=== PATIENT | female | born 1975 | race Hispanic/Latino ===

== ENCOUNTER 2022-07-12 08:25 | Emergency (ER) | payer SELFPAY ==
--- OUTSIDE RECORDS SUMMARY | 2022-07-12 08:29 | XMS REPORT | Continuity of Care Document ---
:1975 Author Organization [facility] t Address [address] [place] [address] Care Team Providers Name Role Phone PCP, PATIENT DOES NOT HAVE A Primary Care Physician Gricelda Villareal MD Attending Clinician GRICELDA ORANTES Attending Clinician Unavailable MATT KEARNEY Attending Clinician Unavailable Payers Payer Name Policy Type Policy Number Effective Date Expiration Date S [facility] MEDICAID ALIEN PENDING 2021 PENDING 00:00:00 Problems This patient has no known problems. Allergies, Adverse Reactions, Alerts Allergy Allergy Status Severity Reaction(s) Onset Inactive Treating Comm ents Source Name Type Date Date Clinician TETANUS DRUG Active Other-Cmnt Unive rs AND INGREDI 9-26 ity of DIPHTHER 00:00: [place] 00 Medical TOXOIDS, Branch ADSORBED , ADULT NO KNOWN Drug Active Univers ALLERGIE Class ity of S [facility] Social History Social Habit Start Date Stop Date Quantity Comments Source Exposure to 2021-11-12 2021-12-12 Not sure [facility] SARS-CoV-2 (event) 00:00:00 19:59:00 Medica l Branch Sex Assigned At [birth year] [facility] 00:00:00 00:00:00 Medical Branch Smoking Status Start Date Stop Date Source Unknown if ever smoked [facility] Medications Ordered Filled Start Stop Current Ordering Indication Dosage Frequency Signature Comments Components Source Medication Medication Date Date Medication? Clinician (SIG) Name Name ketorolac 30mg 30 mg, Unive rs (TORADOL) 12-13 Slow IV ity of injection 03:45: 03:21 Push, [place] 30 mg 00 :00 ONCE, 1 Medical dose, On Branch Sat12/12/21 at 2245, Routine
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 Vital Signs Vital Name Observation Time Observation Value Comments Source Systolic blood 2021-12-13 04:00:00 140 mm[Hg] [facility] Diastolic blood 2021-12-13 04:00:00 99 mm[Hg] [facility] Heart rate 2021-12-13 04:00:00 74 /min [facility] Respiratory rate 2021-12-13 04:00:00 16 /min [facility] Oxygen saturation in 2021-12-13 04:00:00 94 /min [facility] Arterial blood by [facility] Pulse oximetry [place] Body temperature 2021-12-13 01:02:00 36.61 [facility] Body height 2021-12-13 01:02:00 152.4 cm [facility] Body weight 2021-12-13 01:02:00 74.39 kg [facility] BMI 2021-12-13 01:02:00 32.03 kg/m2 [facility] Procedures Procedure Date / Time Performed Performing Clinician Sourc e COMP. METABOLIC PANEL 2021-12-13 03:22:00 Gricelda Orantes [facility] ([id number]) [facility] CBC WITH DIFF 2021-12-13 03:22:00 Gricelda Orantes [facility] POCT TEST 2021-12-13 02:52:00 Gricelda Orantes [facility] URINALYSIS 2021-12-13 01:09:00 Gricelda Orantes [facility] NOTICE OF PRIVACY 2021-12-13 00:59:25 Doctor Unassigned, No Univ [facility] Name [facility] CONSENT/REFUSAL FOR 2021-12-13 00:53:45 [facility] TREATMENT Encounters Start End Encounter Admission Attending Care Care Encounter Source Date/Time Date/Time Type Type Clinicians Facility Department ID 2021-12-12 2021-12-12 Emergency [facility] [id number] Univers 20:52:00 23:09:00 Gricelda Hernandez [place] [id number] [facility] [id number] [facility] [id number] [facility] 084 Branch 2021-12-12 2021-12-12 Emergency X COUNT INCLUDES THE [facility] ERT [id number] Univers 20:52:00 23:09:00 [facility] 2021-12-12 2021-12-12 Emergency X COUNT INCLUDES THE [facility] ERT [id number] Univers 20:52:00 23:09:00 [facility] 2016-07-10 2016-07-10 Outpatient [facility] [id number] Univers 11:27:07 23:59:00 ERICCA [facility] Results Test Description Test Time Test Comments Results Result Comments Source COMP. METABOLIC PANEL (74106) 2021-12-13 03:44:02 Test Item Value Reference Range Interpretation Comme nts NA (test code = 4461044689) 140 mmol/L 135-145 K (test code = 9462641359) 4.0 mmol/L 3.5-5.0 CL (test code = 8775792316) 101 mmol/L 98-108 CO2 TOTAL (test code = 6358474372) 27 mmol/L 23-31 AGAP (test code = 4442045848) 2-16 BUN (test code = 1244984596) 10 mg/dL 7-23 GLUCOSE (test code = 5766666651) 88 mg/dL 70-110 CREATININE (test code = 0.50 mg/dL 0.50-1.04 0866438212) TOTAL BILI (test code = 0.6 mg/dL 0.1-1.9 6841055128) CALCIUM (test code = 2985819957) 8.5 mg/dL 8.6-10.6 L T PROTEIN (test code = 3795199130) 7.5 g/dL 6.3-8.2 ALBUMIN (test code = 2808162737) 4.5 g/dL 3.5-5.0 ALK PHOS (test code = 6252491874) 60 U/L 34-122 ALTv (test code = 1742-6) 23 U/L 5-35 AST(SGOT) (test code = 7482229660) 26 U/L 13-40 eGFR (test code = 9526427770) mL/min/1.73m2 BOBBY (test code = BOBBY) Association of Glomerular Filtration Rate (GFR) and Staging of Kidney Disease* + +-------- + ------+| GFR (mL/min/1.73 m2) ?| With Kidney Damage ?| ?Without Kidney Damage+ +-- + +| ?>90 ?| ?Stage one ?| ? Normal ?+ +------- + -------+| ?60-89 ?| ?Stage two ?| ? Decreased GFR ? + +-------- + ------+| ?30-59 ?| ?Stage three ?| ? Stage three ? + +-------- + ------+| ?15-29 ?| ?Stage four ? | ? Stage four ?+ +------- + -------+| ?<15 (or dialysis) ? ?| ?Stage five ? | ? Stage five ?+ +------- + -------+ *Each stage assumes the associated GFR level has been in effect for at least three months. ?Stages 1 to 5, with or without kidney disease, indicate chronic kidney disease. Notes: Determination of stages one and two (with eGFR >59mL/min/1.73 m2) requires estimation of kidney damage for at least three months as defined by structural or functional abnormalities of the kidney, manifested by either:Pathological abnormalities or Markers of kidney damage (including abnormalities in the composition of the blood or urine or abnormalities in imaging tests). Lab Interpretation (test code = Abnormal 15907-5) [facility] WITH [id number] 03:30:42 Test Item Value Reference Range Interpretation Comments WBC (test code = See_Comment [Automated message] 6690-2) The system [employer] generated this result transmitted ref erence range: 4.30 - 1 1.10 10*3/?L. The re ference range was not u sed to interpret this result as normal/abnor mal. RBC (test code = See_Comment [Automated message] 339-8) The system [employer] generated this result transmitted ref erence range: 3.93 - 5 .25 10*6/?L. The re ference range was not u sed to interpret this result as normal/abnor mal. HGB (test code = 14.3 g/dL 11.6-15.0 718-7) HCT (test code = 42.8 % 35.7-45.2 4544-3) MCV (test code = 87.5 fL 80.6-95.5 787-2) MCH (test code = 29.2 pg 25.9-32.8 785-6) MCHC (test code = 33.4 g/dL 31.6-35.1 786-4) RDW-SD (test code 42.4 fL 39.0-49.9 = 48689-0) RDW-CV (test code 13.3 % 12.0-15.5 = 788-0) PLT (test code = See_Comment [Automated message] 607-3) The system [employer] generated this result transmitted ref erence range: 166 - 35 8 10*3/?L. The re ference range was not u sed to interpret this result as normal/abnor mal. MPV (test code = 10.7 fL 9.5-12.9 53006-5) NRBC/100 WBC (test See_Comment [Automat ed message] code = 9003894564) The syste [employer] which generated this result transmitted ref erence range: 0.0 - 10 .0 /100 WBCs. The refer ence range was not u sed to interpret this result as normal/abnor mal. NRBC x10^3 (test <0.01 See_Comment [Automated message] code = 8102434781) The syste m which generated this result transmitted ref erence range: 10*3/?L. The reference range was not used to interpr et this result as normal/abnormal . GRAN MAT (NEUT) % 52.4 % (test code = 770-8) IMM GRAN % (test 0.20 % code = 6726254934) LYMPH % (test code 36.1 % = 736-9) MONO % (test code 8.6 % = 5905-5) EOS % (test code = 2.3 % 713-8) BASO % (test code 0.4 % = 706-2) GRAN MAT 2.56 10*3/uL 1.88-7.09 x10^3(ANC) (test code = 9409973774) IMM GRAN x10^3 <0.03 0.00-0.06 (test code = 2109730029) LYMPH x10^3 (test 1.76 10*3/uL 1.32-3.29 code = 731-0) MONO x10^3 (test 0.42 10*3/uL 0.33-0.92 code = 742-7) EOS x10^3 (test 0.11 10*3/uL 0.03-0.39 code = 711-2) BASO x10^3 (test <0.03 0.01-0.07 code = 704-7) [id number]:52[facility]00 Test Item Value Reference Range Interpretation Comments POCT PREG (test code = 1605) negative On board controls acceptable with present C Line (test code = 3574) POCT PREG LOT # (test code = 3575) [id number] POCT PREG TEST DATE (test 05/25/2023 code = 3576) Lab Interpretation (test code = Normal 41345-8) [facility]"
[2022-07-12] MEDS ORDERED: MORPHINE 4 MG/ML SYR ONE (09:27)
[2022-07-12] MEDS ORDERED: ONDANSETRON 4 MG/2 ML VIAL ONE (09:27)
[2022-07-12] MEDS ORDERED: FAMOTIDINE 20 MG/2 ML VIAL IV ONE (09:27)
[2022-07-12] MEDS ORDERED: NA CHLORIDE 0.9% 1,000 ML ONE (09:27)
[2022-07-12 09:54] LABS: Absolute Lymphocytes (CBC) 1.5 K/uL (0.7-4.9); Hematocrit 45.3 % (36.0-45.0); Lymphocytes % 21.5 % (15.3-44.8); MCV 87.8 fL (80-100); MPV 8.6 fL (7.6-11.3); RBC Red Blood Cell Count 5.16 M/uL (3.86-4.86)
[2022-07-12 10:01] LABS: Albumin 4.1 g/dL (3.4-5.0); Bilirubin Total 0.7 mg/dL (0.2-1.0); Potassium 3.5 mmol/L (3.5-5.1); Protein, Total 8.6 g/dL (6.4-8.2)
--- NOTE | 2022-07-12 10:43 | RAD REPORT ---
EXAM DESCRIPTION: CTAbdomen Pelvis W Contrast - 07/12/2022 10:24 am CLINICAL HISTORY: Abdominal pain. Abdominal pain, acute, nonlocalized COMPARISON: No comparisons TECHNIQUE: Biphasic CT imaging of the abdomen and pelvis was performed with 100 ml non-ionic IV cont rast. All CT scans are performed using dose optimization technique as appropriate and may include automated exposure control or mA/KV adjustment according to patient size. FINDINGS: The lung bases are clear.Small hiatal hernia. The liver, spleen, pancreas, adrenal glands and kidneys are within normal limits. No bowel obstruction, free air, free fluid or abscess. The appendix is normal. No evidence of signi ficant lymphadenopathy. The uterus is very enlarged measuring 16 x 10 cm and containing multiple masses likely leiomyomatous uterus. There is a large lesion in the right lower quadrant measuring 9.4 x 7.6 cm, this is likely ri ght ovarian in origin. No suspicious bony findings. IMPRESSION: Large cystic lesion present in the right lower quadrant measuring 9.4 x 7.6 cm. This cou ld represent a large ovarian cyst, ovarian cystadenoma or less likely ovarian cystadenocarcinoma. Pel itzel ultrasound could be obtained for further evaluation. Significant leiomyomatous uterus.
--- NOTE | 2022-07-12 10:52 | RAD REPORT ---
EXAM DESCRIPTION: RAD - Chest Single View - 07/12/2022 10:47 am CLINICAL HISTORY: CHEST PAIN Chest pain. COMPARISON: No comparisons FINDINGS: Portable technique limits examination quality. The lungs are grossly clear. The heart is normal in size. No displaced fractures. IMPRESSION: No acute intrathoracic process suspected.
--- NOTE | 2022-07-12 11:24 | RAD REPORT ---
EXAM DESCRIPTION: US - Pelvis Complete - 07/12/2022 11:14 am CLINICAL HISTORY: cyst,cpx Pelvic pain. COMPARISON: No comparisons FINDINGS: There is significant enlargement of the uterus present with multiple fibroids present thro ughout the uterine body. The largest in the fundal region noted measuring up to 9 centimeters in size . Endometrium is poorly characterized and distorted by the fibroids. Right ovary measures 3.7 x 1.7 cm. Left ovary measures 4.0 x 2.4 cm. Cystic lesion in the right adnex a measuring 7.7 x 9.1 cm noted probably ovarian or parovarian cyst. IMPRESSION: 9 cm right lower quadrant cystic lesion probably ovarian or parovarian cyst.The lesion h as generally simple cystic characteristics. However, for further evaluation, recommend nonemergent MR I female pelvis protocol. Extensive leiomyomatous uterus.
--- NOTE | 2022-07-12 12:06 | ER ---
Nurse's Notes [facility] Name: Jeannine Alvarenga Age: 46 yrs Sex: Female : 1975 Arrival Date: 07/12/2022 Time: 08:27 Bed 6 Private MD: Diagnosis: Leiomyoma of uterus, unspecified;Other and unspecified ovarian cysts-9.4cm x 7.6cm , right, cystic;Vomiting;Diarrhea, unspecified;Abdominal tenderness Presentation: 07/12 08:36 Chief complaint: Patient states: Dizziness, upper abd pain, N/V/D that began last ss night. Coronavirus screen: Client denies travel out of the [place] in the last 14 days. Ebola Screen: Patient denies exposure to infectious person. Patient denies travel to an Ebola-affected area in the 21 days before illness onset. Initial Sepsis Screen: Does the patient meet any 2 criteria? No. Patient's initial sepsis screen is negative. Does the patient have a suspected source of infection? No. Patient's initial sepsis screen is negative. Risk Assessment: Do you want to hurt yourself or someone else? Patient reports no desire to harm self or others. Onset of symptoms was July 11, 2022. 08:36 Method Of Arrival: Ambulatory ss 08:36 Acuity: ADDIS 3 ss Historical: - Allergies: 08:37 No Known Allergies; ss - Home Meds: 08:37 None [Active]; ss - PMHx: 08:31 Ovarian cyst; ss 08:37 Hypertensive disorder; ss - PSHx: 08:37 None; ss - Immunization history:: Client reports receiving the 2nd dose of the Covid vaccine. - Social history:: Smoking status: Patient denies any tobacco usage or history of. Screenin:44 Abuse screen: Denies threats or abuse. Nutritional screening: No deficits noted. vg1 Tuberculosis screening: No symptoms or risk factors identified. Fall Risk No fall in past 12 months (0 pts). No secondary diagnosis (0 pts). IV access (20 points). Ambulatory Aid- None/Bed Rest/Nurse Assist (0 pts). Gait- Normal/Bed Rest/Wheelchair (0 pts) Mental Status- Oriented to own ability (0 pts). Total Waters Fall Scale indicates No Risk (0-24 pts). Assessment: 09:25 General: Appears in no apparent distress. uncomfortable, Behavior is calm, cooperative. vg1 Pain: Complains of pain in abdomen Pain currently is 8 out of 10 on a pain scale. Pain began this morning around 0100. Neuro: Level of Consciousness is awake, alert, obeys commands, Oriented to person, place, time, situation. Cardiovascular: Patient's skin is warm and dry. Respiratory: Airway is patent Respiratory effort is even, unlabored. GI: Abdomen is flat, Bowel sounds present X 4 quads. Abdomen is tender to palpation in right lower quadrant and left lower quadrant Reports diarrhea, nausea, vomiting. : Reports currently on menstrual cycle states pressure lower ABD and "not bleeding as a normal period, I only see blood when I wipe". EENT: No signs and/or symptoms were reported regarding the EENT system. Derm: Skin is pink, warm \\T\\ dry. Musculoskeletal: Circulation, motion, and sensation intact. 10:17 Reassessment: transported to CT via wheelchair. vg1 10:50 Reassessment: Patient appears in no apparent distress at this time. No changes from vg1 previously documented assessment. Patient and/or family updated on plan of care and expected duration. Pain level reassessed. Patient is alert, oriented x 3, equal unlabored respirations, skin warm/dry/pink. Vital Signs: 08:36 BP 174 / 91; Pulse 70; Resp 16; Temp 97.9(TE); Pulse Ox 99% on R/A; Weight 70.31 kg; ss Pain 5/10; 09:30 BP 159 / 99; Pulse 70; Resp 15; Pulse Ox 98% on R/A; vg1 10:30 BP 159 / 92; Pulse 66; Resp 15; Pulse Ox 99% on R/A; vg1 12:30 BP 152 / 89; Pulse 65; Resp 14; Pulse Ox 98% on R/A; vg1 ED Course: 08:27 Patient arrived in ED. am2 08:29 Ciro Isaac MD is Attending Physician. tiffany 08:36 Loida Calderon, RN is Primary Nurse. vg1 08:37 Triage completed. ss 08:37 Arm band placed on left wrist. ss 09:33 Initial lab(s) drawn, by me, sent to lab. Inserted saline lock: 20 gauge in right vg1 antecubital area, using aseptic technique. Blood collected. 09:44 Patient has correct armband on for positive identification. Placed in gown. Bed in low vg1 position. Call light in reach. Side rails up X 1. Adult w/ patient. 10:26 CT Abd/Pelvis - IV Contrast Only In Process Unspecified. EDMS 10:49 Chest Single View XRAY In Process Unspecified. EDMS 11:16 Pelvis Complete In Process Unspecified. EDMS 12:04 Pamela Gay MD is Referral Physician. [facility] 12:40 No provider procedures requiring assistance completed. IV discontinued, intact, vg1 bleeding controlled, No redness/swelling at site. Pressure dressing applied. Administered Medications: 09:33 Drug: NS 0.9% 1000 ml Route: IV; Rate: 1 bolus; Site: right antecubital; vg1 12:40 Follow up: IV Status: Completed infusion; IV Intake: 1000ml vg1 09:34 Drug: Zofran (Ondansetron) 4 mg Route: IVP; Site: right antecubital; vg1 10:51 Follow up: Response: No adverse reaction; No change in condition vg1 09:36 Drug: Pepcid (famotidine) 20 mg Route: IVP; Site: right antecubital; vg1 10:51 Follow up: Response: No adverse reaction; No change in condition vg1 09:38 Drug: morphine 4 mg Route: IVP; Infused Over: 4 mins; Site: right antecubital; vg1 10:51 Follow up: Response: No adverse reaction; No change in condition vg1 12:36 Drug: Ketorolac 30 mg Route: IVP; Site: right antecubital; vg1 12:39 Follow up: Response: Medication administered at discharge. vg1 Medication: 12:40 VIS not applicable for this client. vg1 Intake: 12:40 IV: 1000ml; Total: 1000ml. vg1 Outcome: 12:05 Discharge ordered by . tiffany 12:40 Discharged to home ambulatory, with family. vg1 12:40 Condition: good 12:40 Discharge instructions given to patient, family, Instructed on discharge instructions, follow up and referral plans. medication usage, Demonstrated understanding of instructions, follow-up care, medications, Prescriptions given X 2. 12:43 Patient left the ED. vg1 Signatures: Dispatcher [employer] EDCiro Yeboah MD MD cha Smirch, Karol, RN RN ss Sana Herzog am2 Loida Calderon RN RN vg1 Corrections: (The following items were deleted from the chart) :12 09:25 : No signs and/or symptoms were reported regarding the genitourinary system. vg1vg1
--- NOTE | 2022-07-12 12:06 | EDPHYS ---
Physician Documentation [facility] Name: Jeannine Alvarenga Age: 46 yrs Sex: Female : 1975 Arrival Date: 07/12/2022 Time: 08:27 Bed 6 Private MD: PEARL Physician Ciro Isaac HPI: 07/12 10:03 This 46 yrs old Female presents to ER via Ambulatory with complaints of tiffany Abdominal Pain, Vomiting/Diarrhea. 10:03 The patient presents to the emergency department with nausea, vomiting, diarrhea, tiffany abdominal pain. Onset: The symptoms/episode began/occurred yesterday. Possible causes: unknown. The symptoms are aggravated by nothing. The symptoms are alleviated by nothing. Associated signs and symptoms: Pertinent positives: diarrhea, nausea, vomiting. Severity of symptoms: At their worst the symptoms were moderate in the emergency department the symptoms are unchanged. The patient has not experienced similar symptoms in the past. Historical: - Allergies: 08:37 No Known Allergies; ss - Home Meds: 08:37 None [Active]; ss - PMHx: 08:31 Ovarian cyst; ss 08:37 Hypertensive disorder; ss - PSHx: 08:37 None; ss - Immunization history:: Client reports receiving the 2nd dose of the Covid vaccine. - Social history:: Smoking status: Patient denies any tobacco usage or history of. ROS: 10:04 Constitutional: Negative for fever, chills, and weight loss, Eyes: Negative for injury, tiffany pain, redness, and discharge, ENT: Negative for injury, pain, and discharge, Neck: Negative for injury, pain, and swelling, Respiratory: Negative for shortness of breath, cough, wheezing, and pleuritic chest pain, Back: Negative for injury and pain, : Negative for injury, bleeding, discharge, and swelling, MS/Extremity: Negative for injury and deformity, Skin: Negative for injury, rash, and discoloration, Neuro: Negative for headache, weakness, numbness, tingling, and seizure, Psych: Negative for depression, anxiety, suicide ideation, homicidal ideation, and hallucinations, Allergy/Immunology: Negative for hives, rash, and allergies, Endocrine: Negative for neck swelling, polydipsia, polyuria, polyphagia, and marked weight changes, Hematologic/Lymphatic: Negative for swollen nodes, abnormal bleeding, and unusual bruising. 10:04 Cardiovascular: Positive for chest pain, of the chest. 10:04 Abdomen/GI: Positive for abdominal pain, nausea, vomiting, diarrhea, of the left lower quadrant. Exam: 10:04 Constitutional: This is a well developed, well nourished patient who is awake, alert, tiffany and in no acute distress. Head/Face: Normocephalic, atraumatic. Eyes: Pupils equal round and reactive to light, extra-ocular motions intact. Lids and lashes normal. Conjunctiva and sclera are non-icteric and not injected. Cornea within normal limits. Periorbital areas with no swelling, redness, or edema. ENT: Nares patent. No nasal discharge, no septal abnormalities noted. Tympanic membranes are normal and external auditory canals are clear. Oropharynx with no redness, swelling, or masses, exudates, or evidence of obstruction, uvula midline. Mucous membranes moist. Neck: Trachea midline, no thyromegaly or masses palpated, and no cervical lymphadenopathy. Supple, full range of motion without nuchal rigidity, or vertebral point tenderness. No Meningismus. Chest/axilla: Normal chest wall appearance and motion. Nontender with no deformity. No lesions are appreciated. Cardiovascular: Regular rate and rhythm with a normal S1 and S2. No gallops, murmurs, or rubs. Normal PMI, no JVD. No pulse deficits. Respiratory: Lungs have equal breath sounds bilaterally, clear to auscultation and percussion. No rales, rhonchi or wheezes noted. No increased work of breathing, no retractions or nasal flaring. Back: No spinal tenderness. No costovertebral tenderness. Full range of motion. Pelvic Exam: Normal external genitalia. Speculum exam with closed cervical os, no discharge or bleeding noted. Bimanual exam with normal adnexa, no adnexal or cervical motion tenderness. Normal uterus. Female : Normal external genitalia. Skin: Warm, dry with normal turgor. Normal color with no rashes, no lesions, and no evidence of cellulitis. MS/ Extremity: Pulses equal, no cyanosis. Neurovascular intact. Full, normal range of motion. Neuro: Awake and alert, GCS 15, oriented to person, place, time, and situation. Cranial nerves II-XII grossly intact. Motor strength 5/5 in all extremities. Sensory grossly intact. Cerebellar exam normal. Normal gait. Psych: Awake, alert, with orientation to person, place and time. Behavior, mood, and affect are within normal limits. 10:04 Abdomen/GI: Inspection: abdomen appears normal, Bowel sounds: normal, Palpation: mild abdominal tenderness, in the left lower quadrant, Liver: no appreciated palpable abnormalities, Hernia: not appreciated. 10:20 ECG was reviewed by the Attending Physician. [facility] Vital Signs: 08:36 BP 174 / 91; Pulse 70; Resp 16; Temp 97.9(TE); Pulse Ox 99% on R/A; Weight 70.31 kg; ss Pain 5/10; 09:30 BP 159 / 99; Pulse 70; Resp 15; Pulse Ox 98% on R/A; vg1 10:30 BP 159 / 92; Pulse 66; Resp 15; Pulse Ox 99% on R/A; vg1 12:30 BP 152 / 89; Pulse 65; Resp 14; Pulse Ox 98% on R/A; vg1 MDM: 08:29 Patient medically screened. tiffany 10:05 Differential diagnosis: abnormal EKG, acute myocardial infarction, acute pericarditis, tiffany cholecystitis, Cholelithiasis costochondritis, Nonspecific abd pain, gastritis, pancreatitis, diverticulitis, viral gastroenteritis, gastroenteritis, gastritis. HEART Score:. The patient's deep vein thrombosis risk score was calculated as follows: Total Score: 0. This patient was found to be at low risk for a deep vein thrombosis by using the Well's assessment criteria. The patient's pulmonary embolism risk score was calculated as follows: Total Score: 0-2 points. This patient was found to be at low risk for a pulmonary embolism by using the Well's assessment criteria. CARMEL Risk Score: TOTAL SCORE = 0. Data reviewed: vital signs, nurses notes, lab test result(s), EKG, radiologic studies, CT scan, plain films. Data interpreted: personnel monitor: rate is 70 beats/min, rhythm is regular, Pulse oximetry: on room air is 98 %. Test interpretation: by ED physician or midlevel provider: ECG, plain radiologic studies. 07/12 08:29 Order name: CBC with Diff; Complete Time: 10: [facility] 07/12 08:29 Order name: CMP; Complete Time: : [facility] 07/12 08:29 Order name: Lipase; Complete Time: 10: [facility] 07/12 10:02 Order name: Troponin High Sensitivity; Complete Time: 10:47 [facility] 07/12 12:17 Order name: Urine Dipstick-Ancillary [facility] 07/12 08:29 Order name: CT Abd/Pelvis - IV Contrast Only; Complete Time: 10:47 [facility] 07/12 10:03 Order name: Chest Single View XRAY; Complete Time: 11:06 [facility] 07/12 11:16 Order name: Pelvis Complete; Complete Time: 12:05 [facility] 07/12 12:19 Order name: Urine --Ancillary (enter results) 07/12 08:29 Order name: IV Saline Lock; Complete Time: 09:41 [facility] 07/12 08:29 Order name: Labs collected and sent; Complete Time: 09:41 [facility] 07/12 08:29 Order name: Urine Dipstick-Ancillary (obtain specimen); Complete Time: 12:18 [facility] 07/12 08:29 Order name: Urine Test (obtain specimen); Complete Time: 12:18 [facility] 07/12 10:02 Order name: EKG; Complete Time: 10:03 [facility] 07/12 10:02 Order name: EKG - Nurse/Tech; Complete Time: 10:16 [facility] EC:20 Rate is 65 beats/min. Rhythm is regular. QRS [place] is Normal. [place] interval is normal. QRS tiffany interval is normal. QT interval is normal. No Q waves. T waves are Normal. No ST changes noted. Clinical impression: Normal ECG and No evidence of ischemia. Interpreted by me. Reviewed by me. Administered Medications: 09:33 Drug: NS 0.9% 1000 ml Route: IV; Rate: 1 bolus; Site: right antecubital; vg1 12:40 Follow up: IV Status: Completed infusion; IV Intake: 1000ml vg1 09:34 Drug: Zofran (Ondansetron) 4 mg Route: IVP; Site: right antecubital; vg1 10:51 Follow up: Response: No adverse reaction; No change in condition vg1 09:36 Drug: Pepcid (famotidine) 20 mg Route: IVP; Site: right antecubital; vg1 10:51 Follow up: Response: No adverse reaction; No change in condition vg1 09:38 Drug: morphine 4 mg Route: IVP; Infused Over: 4 mins; Site: right antecubital; vg1 10:51 Follow up: Response: No adverse reaction; No change in condition vg1 12:36 Drug: Ketorolac 30 mg Route: IVP; Site: right antecubital; vg1 12:39 Follow up: Response: Medication administered at discharge. vg1 Disposition Summary: 07/12/22 12:05 Discharge Ordered Location: Home tiffany Problem: new tiffany Symptoms: have improved tiffany Condition: Stable tiffany Diagnosis - Leiomyoma of uterus, unspecified tiffany - Other and unspecified ovarian cysts - 9.4cm x 7.6cm , right, cystic tiffany - Vomiting tiffany - Diarrhea, unspecified tiffany - Abdominal tenderness tiffany Followup: tiffany - With: Private Physician - When: 2 - 3 days - Reason: Recheck today's complaints, Continuance of care, Re-evaluation by your physician Followup: tiffany - With: - When: 2 - 3 days - Reason: Recheck today's complaints, Continuance of care, Re-evaluation by your physician Discharge Instructions: - Discharge Summary Sheet tiffany - Abdominal Pain, Adult tiffany - Diarrhea, Adult tiffany - Uterine Fibroids tiffany - Ovarian Cyst tiffany - Abdominal Pain, Adult, [id number] tiffany - Ovarian Cyst, [id number] tiffany - Diarrhea, Adult, [id number] tiffany - Vomiting, Adult tiffany Forms: - Medication Reconciliation Form tiffany - Thank You Letter tiffany - Antibiotic Education tiffany - Prescription Opioid Use tiffany - Work release form vg1 Prescriptions: - Zofran 4 mg Oral Tablet - take 1 tablet by ORAL route every 12 hours As needed; 20 tablet; Refills: 0, tiffany Product Selection Permitted - Diclofenac Sodium 75 mg Oral tablet,delayed release (DR/EC) - take 1 tablet by ORAL route 2 times per day; 20 tablet; Refills: 0, Product tiffany Selection Permitted Signatures: Dispatcher [employer] EDCiro Yeboah MD MD cha Smirch, Shelby RN RN Loida Anna RN RN vg1 Corrections: (The following items were deleted from the chart) 11:16 10:50 Transvaginal Study (Probe)+[email or web address] ordered. EDMS EDMS
[2022-07-12 12:17] LABS: Urine Blood Negative (Negative); Urine Glucose Negative (Negative); Urine Protein Negative (Negative); Urine Specific Gravity 1.015 (1.005-1.030)
[2022-07-12] MEDS ORDERED: KETOROLAC 30 MG/ML INJ ONE (12:22)
[2022-07-12 12:43] LABS: Urine Specific Gravity/Preg 1.015 (1.005-1.030)
[2022-07-12 12:48] VITALS: TEMP 97.9
[2022-07-12 12:51] VITALS: BP 152/89; O2SAT 98
--- NOTE | 2022-07-14 19:19 | EKG ---
Test Date: 2022-07-12 Test Time: 10:14:00 [employer] Kitchen: MEASUREMENT RESULTS: Intervals: Rate: 65 TX: 160 QRSD: 92 QT: 426 QTc: 443 [place]: P: 62 TX: 160 QRS: 65 T: 48 INTERPRETIVE STATEMENTS: Normal sinus rhythm Normal ECG No previous ECG available for comparison Electronically Signed On 07-14-22 19:11:08 RN DISEASE MANAGEMENT by Cory Luo
== END 2022-07-12 12:43 | disposition home or self-care (01) ==
LOC: ER 08:25
DX: N83.299 Other ovarian cyst, unspecified side (principal); D25.9 Leiomyoma of uterus, unspecified; R19.7 Diarrhea, unspecified; R11.10 Vomiting, unspecified
CPT/HCPCS: 36415; 71045; 74177; 76856; 80053; 81003; 81025; 83690; 84484; 85025; 93005; 96361; 96374; 96375; 99284; J2405; J7030; Q9967

== ENCOUNTER 2025-05-19 10:11 | Emergency (ER) | payer OTHER ==
--- OUTSIDE RECORDS SUMMARY | 2025-05-19 10:17 | XMS REPORT | Continuity of Care Document ---
Author Name Unknown Address [address] [facility] [address] [place] [address] [facility] Address [address] [facility] [address] [facility] [address] [place] [address] Care Team Providers Care Deputy Chief Sheriff Name Role Phone Pcp, Patient Does Not Have A Primary Care Physic sonal NT90 Attending Clinician Unavailable PREZAS, RAMILA Attending Clinician Unavailable DOM RICKS Attending Clinician Unavailable MD SOURAV Attending Clinician Unavailab HANNAH Schmid Attending Clinician Unavailable TERRENCE PAYNE Attending Clinician Unava ilable LAB47 Attending Clinician Unavailable LAB90 Attending Clinician Unavailable LUIS LOYOLA Attending Clinician Unavailable PAMELA LUIS Attending Clinician Unavailable CHAYITO PERALTA Attending Clinician Rashida SUHA Eddy Attending Clinician Unava ilable LEIDA MARTINEZ Attending Clinician Unavailable Hannah Hannon Attending Clinician Unavailable Farhana Gore Attending Clinician UnavailShorty Interiano Attending Clinician [phone] IRIS DUNCAN Attending Clinician Unavailable Iris Duncan MD Attending Clinician [phone] SHORTY MAJOR Attending Clinician Unavailable Hannah Hannon Admitting Clinician Unavailable Physician, No Primary or Family Admitting Clinic sonal Unavailable Payers Payer Name Policy Type Policy Number Effective Date Expirati on Date Source [address] [employer] 87 [id number] 2024 00:00:00 MEDICAID [place] PENDING PENDING 2021 00:00:00 Problems Condition Name Condition Details Condition Category Status Onset Date Resolution Date Last Treatment Date Treating Clinician Comments Source Primary hypertensi on Primary hypertensi on Disease Active 10-26 00:00: 00 Yanni Seybold - Externa l Ganglion cyst of wrist, left Ganglion cyst of wrist, left Disease Active 2015-08 00:00: 00 [facility] Abdominal or pelvic swelling, mass or lump, unspecifie d site Abdominal or pelvic swelling, mass or lump, unspecifie d site Disease Active 2015-08 00:00: 00 [facility] Need for prophylact ic vaccinatio n with combined diphtheria -tetanus-p ertussis (DTP) vaccine Need for prophylact ic vaccinatio n with combined diphtheria -tetanus-p ertussis (DTP) vaccine Disease Active 2014-08 0-12 00:00: 00 [facility] H/O tubal ligation H/O tubal ligation Disease Active 3-05 00:00: 00 [facility] Intramural leiomyoma of uterus Intramural leiomyoma of uterus Disease Active 10-13 00:00: 00 Overview: Formattin g of this note might be different from the original. Confirmed by ade knox Please see radiology report [facility] Other and unspecifie d ovarian cyst Other and unspecifie d ovarian cyst Disease Active 10-13 00:00: 00 [facility] Essential hypertensi on, benign Essential hypertensi on, benign Disease Active 05-21 00:00: 00 [facility] Obesity Obesity Disease Active 05-21 00:00: 00 Overview: Formattin g of this note might be different from the original. ICD10 Diagnosis Term [employer] [facility] Allergies, Adverse Reactions, Alerts Allergy Name Allergy Type Status Severity Reaction(s) Onset Date Inactive Date Treating Clinician Comments Source No Known Allergie s DA Active U 10-05 00:00: 00 [facility] No Known Allergie s DA Active U 2021-0815 00:00: [facility] Tetanus Toxoid Propensi ty to adverse reaction s Active Other 05-21 00:00: 00 Yanni Acevedo - Externa l Tetanus And Diphther ia Toxoids, Adsorbed , Adult Propensi ty to adverse reaction s Active Other - See comments 05-21 00:00: 00 [facility] TETANUS AND DIPHTHER IA TOXOIDS, ADSORBED , ADULT DRUG INGREDI Active Other-Cmnt 05-21 00:00: 00 [facility] NO KNOWN ALLERGIE S Drug Class Active [facility] Social History Social Habit Start Date Stop Date Quantity Comments Source ASSERTION Not Yanni Acevedo - External Gender identity Poornima Acevedo - External Sexual orientation Jamia Acevedo - External Alcoholic beverage intake 2024-06-25 00:00:00 2024-06-25 00:00:00 Ex-drinker (finding) Yanni Acevedo - External Tobacco use and exposure 2023-10-31 00:00:00 2023-10-31 00:00:00 Smokeless tobacco non-user Yanni Acevedo - External Alcohol intake 2023-10-31 00:00:00 2023-10-31 00:00:00 Ex-drinker (finding) Yanni Acevedo - External History of Social function 2023-02-15 00:00:00 2023-02-15 00:00:00 Yanni Acevedo - External Sex 2022-08-23 16:02:21 2022-08-23 16:02:21 Female (finding) Yanni Acevedo - External Exposure to SARS-CoV-2 (event) 2021-11-12 00:00:00 2021-12-12 19:59:00 Not sure [facility] Sex assigned at 1975 00:00:00 1975 00:00:00 Yanni Acevedo - External Smoking Status Start Date Stop Date Source Unknown if ever smoked [facility] Never smoked tobacco Yanni Acevedo - External Medications Ordered Medication Name Filled Medication Name Start Date Stop Date Current Medication? Ordering Clinician Indication Dosage Frequency Signature (SIG) Comments Components Source Pregabalin (Lyrica) 75 MG oral Capsule 2023-08 00:00: 00 Yes [id number] 75mg Q.5D Take 1 capsule (75 mg total) by mouth 2 times daily. Yanni oakley Hydroxychlo roquine Sulfate 200 MG oral Tablet 2023-08 00:00: 00 09-24 05:59 :00 No [id number] 400mg QD Take 2 tablets (400 mg total) by mouth daily. Yanni oakley Diclofenac Sodium 50 MG oral Tablet Delayed Response 2023-08 00:00: 00 06-25 00:00 :00 No [id number] 50mg Q.5D TAKE 1 TABLET (50 MG TOTAL) BY MOUTH 2 TIMES DAILY NEEDED (BACK PAIN). Yanni oakley Nitrofurant oin Monohyd Macro 100 MG oral Capsule 05-22 00:00: 00 06-25 00:00 :00 No [id number] 100mg Q.5D Take 1 capsule (100 mg total) by mouth 2 times daily. Yanni oakley Diclofenac Sodium 50 MG oral Tablet Delayed Response 9- 00:00: 00 Yes [id number] 50mg Q.5D Take 1 tablet (50 mg total) by mouth 2 times daily as needed (back pain). Yanni oakley predniSONE 10 MG (21) oral Tablet Therapy Pack 05-12 00:00: 00 06-25 00:00 :00 No TAKE DIRECTED PER PACK Yanni oakley Metoprolol Succinate 50 MG oral TABLET SR 24 HR 7- 00:00: 00 06-25 00:00 :00 No [id number] take 1 tablet by mouth every day Yanni oaklye NIFEdipine CR Osmotic 60 MG oral TABLET SR 24 HR 6- 00:00: 00 Yes [id number] TAKE 1 TABLET BY MOUTH EVERY DAY Yanni oakley Diclofenac Sodium 50 MG oral Tablet Delayed Response 3-24 00:00: 00 Yes [id number] 50mg Q.5D TAKE 1 TABLET (50 MG TOTAL) BY MOUTH 2 TIMES DAILY NEEDED. Yanni oakley Nitrofurant oin Monohyd Macro (Macrobid) 100 MG oral Capsule 3-09 00:00: 00 05-21 00:00 :00 No 100mg Q.5D Take 1 capsule (100 mg total) by mouth 2 times daily. Yanni oakley Diclofenac Sodium 50 MG oral Tablet Delayed Response 2-28 00:00: 00 Yes [id number] 50mg Q.5D Take 1 tablet (50 mg total) by mouth 2 times daily as needed. Yanni oakley Cephalexin (Keflex) 500 MG oral Capsule 2022-08 2-08 00:00: 00 09-11 00:00 :00 No [id number] 500mg Take 1 capsule (500 mg total) by mouth 4 times daily. Yanni oakley Metoprolol Succinate 50 MG oral TABLET SR 24 HR 8-02 00:00: 00 Yes [id number] TAKE 1 TABLET BY MOUTH EVERY DAY Yanni oakley Celecoxib (CeleBREX) 200 MG oral Capsule 02-15 00:00: 00 Yes [id number] 9103 200mg Take 1 capsule (200 mg total) by mouth 2 times daily Yanni oakley Cyclobenzap rine HCl 5 MG oral Tablet 02-15 00:00: 00 Yes [id number] 9103 5mg Q.[id number] 3D Take 1 tablet (5 mg total) by mouth 3 times daily as needed for muscle spasms Yanni oakley Metoprolol Succinate 50 MG oral Capsule ER 24 Hour Sprinkle 02-15 00:00: 00 Yes [id number] 1{tbl} Take 1 tablet by mouth daily Yanni oakley NIFEdipine CR Osmotic 60 MG oral TABLET SR 24 HR 02-10 00:00: 00 Yes [id number] TAKE 1 TABLET BY MOUTH EVERY DAY Yanni oakley predniSONE (DELTASONE) 10 MG oral tablet 11-22 00:00: 00 02-15 00:00 :00 No [id number] Take 6 tablets (60 mg total) by mouth daily for 2 days, THEN 5 tablets (50 mg total) daily for 2 days, THEN 4 tablets (40 mg total) daily for 2 days, THEN 3 tablets (30 mg total) daily for 2 days, THEN 2 tablets (20 mg total) daily for 2 days, THEN 1 tablet (10 mg total) daily for 2 days. Yanni oakley NIFEdipine CR Osmotic 60 MG oral TABLET SR 24 HR 20 00:00: 00 Yes [id number] 60mg Take 1 tablet (60 mg total) by mouth daily Yanni oakley Cyclobenzap rine HCl 5 MG oral Tablet 3-20 00:00: 00 02-15 00:00 :00 No [id number] 9103 5mg Q.[id number] 3D Take 1 tablet (5 mg total) by mouth 3 times daily as needed for muscle spasms Yanni Singh Externkatia oakley Metoprolol Succinate 25 MG oral TABLET SR 24 HR 20 00:00: 00 02-15 00:00 :00 No [id number] 25mg Take 1 tablet (25 mg total) by mouth daily Yanni oakley Amoxicillin 875 MG oral Tablet 11-12 00:00: 00 02-15 00:00 :00 No [id number] 87416 875mg Take 1 tablet (875 mg total) by mouth 2 times daily Yanni oakley Celecoxib (CeleBREX) 200 MG oral Capsule 11-12 00:00: 00 02-15 00:00 :00 No [id number] 9103 200mg Take 1 capsule (200 mg total) by mouth 2 times daily Yanni oakley Acetaminoph en-Codeine #3 300-30 MG oral Tablet 10-29 00:00: 00 Yes 1{tbl} Take 1 tablet by mouth every 4 (four) hours as needed for pain. Yanni oakley Metoprolol Succinate 25 MG oral TABLET SR 24 HR 10-29 00:00: 00 11-12 00:00 :00 No [id number] TAKE 1 TABLET BY MOUTH EVERY DAY Yanni oakley Metoprolol Succinate 25 MG oral Capsule ER 24 Hour Sprinkle 10-26 00:00: 00 Yes [id number] 1{tbl} Take 1 tablet by mouth daily Yanni oakley NIFEdipine CR Osmotic 60 MG oral TABLET SR 24 HR 10-17 00:00: 00 Yes 60mg Take 60 mg by mouth daily Yanni oakley Ibuprofen (MOTRIN) 600 MG oral Tablet 10-17 00:00: 00 02-15 00:00 :00 No TAKE 1 TABLET BY MOUTH EVERY 6 HOURS NEEDED FOR MILD TO MODERATE PAIN Yanni oakley ketorolac (TORADOL) injection 30 mg 12-13 03:45: 00 12-13 03:21 :00 No 30mg 30 mg, Slow IV Push, ONCE, 1 dose, On Sat12/12/21 at 2245, Routine
seafood team member approving Restricted medication : IRIS DUNCAN [facility] ibuprofen 800 mg tablet 2022-0 4-19 00:00: 00 Yes [id number] 800mg Take 1 tablet by mouth every 8 (eight) hours as needed for Pain (scale 4-6). [facility] Immunizations Ordered Immunization Name Filled Immunization Name Date Status Comments Source Varicella Vaccine 2018-11-26 00:00:00 Completed Yanni Seybold - External MMR- Measles, Mumps, Rubella 2018-11-26 00:00:00 Completed Yanni Seybold - External Varicella Vaccine 2018-11-26 00:00:00 Completed Yanni Seybold - External MMR- Measles, Mumps, Rubella 2018-11-26 00:00:00 Completed Yanni Seybold - External Varicella Vaccine 2018-11-26 00:00:00 Completed Yanni Seybold - External MMR- Measles, Mumps, Rubella 2018-11-26 00:00:00 Completed Yanni Seybold - External Varicella Vaccine 2018-11-26 00:00:00 Completed Yanni Seybold - External MMR- Measles, Mumps, Rubella 2018-11-26 00:00:00 Completed Yanni Seybold - External Tdap- (Boostrix, Adacel) 2018-10-29 00:00:00 Completed Yanni Seybold - External Varicella Vaccine 2018-10-29 00:00:00 Completed Yanni Seybold - External MMR- Measles, Mumps, Rubella 2018-10-29 00:00:00 Completed Yanni Seybold - External Tdap- (Boostrix, Adacel) 2018-10-29 00:00:00 Completed Yanni Seybold - External Varicella Vaccine 2018-10-29 00:00:00 Completed Yanni Seybold - External MMR- Measles, Mumps, Rubella 2018-10-29 00:00:00 Completed Yanni Seybold - External Tdap- (Boostrix, Adacel) 2018-10-29 00:00:00 Completed Yanni Seybold - External Varicella Vaccine 2018-10-29 00:00:00 Completed Yanni Seybold - External MMR- Measles, Mumps, Rubella 2018-10-29 00:00:00 Completed Yanni Seybold - External Tdap- (Boostrix, Adacel) 2018-10-29 00:00:00 Completed Yanni Seybold - External Varicella Vaccine 2018-10-29 00:00:00 Completed Yanni Seybold - External MMR- Measles, Mumps, Rubella 2018-10-29 00:00:00 Completed Yanni Seybold - External Td (adult) 1990-08-26 00:00:00 Completed Yanni Seybold - External Td (adult) 1990-08-26 00:00:00 Completed Yanni Seybold - External Td (adult) 1990-08-26 00:00:00 Completed Yanni Seybold - External Td (adult) 1990-08-26 00:00:00 Completed Yanni Seybold - External Td 1990-08-26 00:00:00 Completed [facility] MMR- Measles, Mumps, Rubella Unknown Completed Yanni Seybol d - External Tdap- (Boostrix, Adacel) Unknown Completed Yanni Seybold - External Varicella Vaccine Unknown Completed Ke lsey Seybold - External Td (adult) Unknown Completed Yanni Se ybold - External MMR- Measles, Mumps, Rubella Unknown Completed Yanni Seybol d - External Tdap- (Boostrix, Adacel) Unknown Completed Yanni Seybold - External Varicella Vaccine Unknown Completed Ke lsey Seybold - External Td (adult) Unknown Completed Yanni Se ybold - External Shingles SQ (Zostavax) Unknown Completed Yanni Seybold - External MMR- Measles, Mumps, Rubella Unknown Completed Yanni Seybol d - External Tdap- (Boostrix, Adacel) Unknown Completed Yanni Seybold - External Varicella Vaccine Unknown Completed Ke lsey Seybold - External Td (adult) Unknown Completed Yanni Se ybold - External Shingles SQ (Zostavax) Unknown Completed Yanni Seybold - External MMR- Measles, Mumps, Rubella Unknown Completed Yanni Seybol d - External Tdap- (Boostrix, Adacel) Unknown Completed Yanni Seybold - External Varicella Vaccine Unknown Completed Ke lsey Seybold - External Td (adult) Unknown Completed Yanni Se ybold - External Shingles SQ (Zostavax) Unknown Completed Yanni Seybold - External MMR- Measles, Mumps, Rubella Unknown Completed Yanni Seybol d - External Tdap- (Boostrix, Adacel) Unknown Completed Yanni Seybold - External Varicella Vaccine Unknown Completed Balwinder lsey Seybold - External Td (adult) Unknown Completed Yanni Se ybold - External Shingles SQ (Zostavax) Unknown Completed Yanni Kamybold - External Influenza, Injectable, Mdck, Preservative Free, Quadrivalent Unknown Completed Yanni Seybold - External MMR- Measles, Mumps, Rubella Unknown Completed Yanni Websterol d - External Tdap- (Boostrix, Adacel) Unknown Completed Yanni Kamybold - External Varicella Vaccine Unknown Completed Balwinder norrisey Seybold - External Td (adult) Unknown Completed Yanni Kam ybold - External Shingles SQ (Zostavax) Unknown Completed Yanni Kamybold - External Influenza, Injectable, Mdck, Preservative Free, Quadrivalent Unknown Completed Yanni Seybold - External Shingles IM (Shingrix) Unknown Completed Yanni Seybold - External MMR- Measles, Mumps, Rubella Unknown Completed Yanni eWbsterol d - External Tdap- (Boostrix, Adacel) Unknown Completed Yanni Kamybold - External Varicella Vaccine Unknown Completed Balwinder lopes Seybold - External Td (adult) Unknown Completed Yanni Kam ybold - External Shingles SQ (Zostavax) Unknown Completed Yanni Kamybold - External Influenza, Injectable, Mdck, Preservative Free, Quadrivalent Unknown Completed Yanni Seybold - External Shingles IM (Shingrix) Unknown Completed Yanni Kamybold - External Vital Signs Vital Name Observation Time Observation Value Comments S ource Systolic blood pressure 2024-06-25 15:18:00 114 mm[Hg] Yanni Seybold - External Diastolic blood pressure 2024-06-25 15:18:00 78 mm[Hg] Yanni Seybold - External Heart rate 2024-06-25 15:18:00 78 /min Yanni Websterold - External Body temperature 2024-06-25 15:18:00 36.5 Poornima Yanni Acevedo - External Respiratory rate 2024-06-25 15:18:00 16 /min Yannirm Websterold - External Body height 2024-06-25 15:18:00 152.4 cm Yannirm Acevedo - External Body weight 2024-06-25 15:18:00 69.854 kg Yannirm Acevedo - External BMI 2024-06-25 15:18:00 30.08 kg/m2 Yanni Websterold - External Oxygen saturation in Arterial blood by Pulse oximetry 2024-06-25 15:18:00 99 /min Yanni Seybold - External Systolic blood pressure 2024-05-21 14:58:00 104 mm[Hg] Yanni Seybold - External Diastolic blood pressure 2024-05-21 14:58:00 74 mm[Hg] Yanni Seybold - External Heart rate 2024-05-21 14:58:00 77 /min Yanni Seybold - External Body temperature 2024-05-21 14:58:00 35.67 Poornima Yanni Seybold - External Respiratory rate 2024-05-21 14:58:00 15 /min Yanni Seybold - External Body height 2024-05-21 14:58:00 154.9 cm Yanni Seybold - External Body weight 2024-05-21 14:58:00 72.576 kg Yanni Seybold - External BMI 2024-05-21 14:58:00 30.23 kg/m2 Yanni Seybold - External Systolic blood pressure 2023-10-31 14:36:00 124 mm[Hg] Yanni Seybold - External Diastolic blood pressure 2023-10-31 14:36:00 79 mm[Hg] Yanni Seybold - External Heart rate 2023-10-31 14:36:00 63 /min Yanni Seybold - External Respiratory rate 2023-10-31 14:36:00 16 /min Yanni Seybold - External Body height 2023-10-31 14:36:00 154.9 cm Yanni Seybold - External Body weight 2023-10-31 14:36:00 73.483 kg Yanni Seybold - External BMI 2023-10-31 14:36:00 30.61 kg/m2 Yanni Seybold - External Body weight 2023-10-23 16:28:00 73.483 kg Yanni Seybold - External BMI 2023-10-23 16:28:00 30.61 kg/m2 Yanni Seybold - External Systolic blood pressure 2023-10-16 16:09:00 141 mm[Hg] has not taken BP medicine today Yanni Seybold - External Diastolic blood pressure 2023-10-16 16:09:00 93 mm[Hg] has not taken BP medicine today Yanni Seybold - External Heart rate 2023-10-16 16:09:00 70 /min Yanni Seybold - External Body weight 2023-10-16 16:09:00 73.936 kg Yanni Seybold - External BMI 2023-10-16 16:09:00 30.80 kg/m2 Yanni Seybold - External Systolic blood pressure 2023-09-11 15:03:00 131 mm[Hg] Yanni Seybold - External Diastolic blood pressure 2023-09-11 15:03:00 89 mm[Hg] Yanni Seybold - External Heart rate 2023-09-11 15:03:00 90 /min Yanni Seybold - External Respiratory rate 2023-09-11 15:03:00 22 /min Yanni Seybold - External Body height 2023-09-11 15:03:00 154.9 cm Yanni Seybold - External Body weight 2023-09-11 15:03:00 73.936 kg Yanni Seybold - External BMI 2023-09-11 15:03:00 30.80 kg/m2 Yanni Seybold - External Oxygen saturation in Arterial blood by Pulse oximetry 2023-09-11 15:03:00 97 /min Yanni Seybold - External Systolic blood pressure 2023-07-24 19:03:00 112 mm[Hg] Yanni Seybold - External Diastolic blood pressure 2023-07-24 19:03:00 71 mm[Hg] Yanni Seybold - External Heart rate 2023-07-24 19:03:00 74 /min Yanni Seybold - External Body temperature 2023-07-24 19:03:00 36.28 Poornima Yanni Seybold - External Respiratory rate 2023-07-24 19:03:00 15 /min Yanni Seybold - External Body height 2023-07-24 19:03:00 154.9 cm Yanni Seybold - External Body weight 2023-07-24 19:03:00 72.576 kg Yanni Seybold - External BMI 2023-07-24 19:03:00 30.23 kg/m2 Yanni Seybold - External Oxygen saturation in Arterial blood by Pulse oximetry 2023-07-24 19:03:00 99 /min Yanni Seybold - External Systolic blood pressure 2023-02-15 15:54:00 120 mm[Hg] Yanni Seybold - External Diastolic blood pressure 2023-02-15 15:54:00 74 mm[Hg] Yanni Seybold - External Heart rate 2023-02-15 15:54:00 102 /min Yanni Seybold - External Body temperature 2023-02-15 15:54:00 36.56 Poornima Yanni Seybold - External Respiratory rate 2023-02-15 15:54:00 14 /min Yanni Seybold - External Body height 2023-02-15 15:54:00 154.9 cm Yanni Seybold - External Body weight 2023-02-15 15:54:00 76.658 kg Yanni Seybold - External BMI 2023-02-15 15:54:00 31.93 kg/m2 Yanni Seybold - External Body height 2023-01-04 14:22:00 154.9 cm Yanni Seybold - External Body weight 2023-01-04 14:22:00 73.483 kg Yanni Seybold - External BMI 2023-01-04 14:22:00 30.61 kg/m2 Yanni Seybold - External Systolic blood pressure 2022-11-12 19:37:00 110 mm[Hg] Yanni Seybold - External Diastolic blood pressure 2022-11-12 19:37:00 72 mm[Hg] Yanni Seybold - External Heart rate 2022-11-12 19:37:00 77 /min Yanni Seybold - External Body temperature 2022-11-12 19:37:00 36.5 Poornima Yanni Seybold - External Respiratory rate 2022-11-12 19:37:00 15 /min Yanni Seybold - External Body height 2022-11-12 19:37:00 152.4 cm Yanni Seybold - External Body weight 2022-11-12 19:37:00 73.483 kg Yanni Seybold - External BMI 2022-11-12 19:37:00 31.64 kg/m2 Yanni Seybold - External Systolic blood pressure 2022-10-26 16:44:00 132 mm[Hg] Yanni Kamybold - External Diastolic blood pressure 2022-10-26 16:44:00 84 mm[Hg] Yanni Websterold - External Heart rate 2022-10-26 16:44:00 105 /min Yanni Acevedo - External Body temperature 2022-10-26 16:44:00 36.39 Poornima Yanni Acevedo - External Respiratory rate 2022-10-26 16:44:00 15 /min Yanni Acevedo - External Body height 2022-10-26 16:44:00 152.4 cm Yanni Acevedo - External Body weight 2022-10-26 16:44:00 72.576 kg Yanni Acevedo - External BMI 2022-10-26 16:44:00 31.25 kg/m2 Yanni Websterold - External Systolic blood pressure 2021-12-13 04:00:00 140 mm[Hg] [facility] Diastolic blood pressure 2021-12-13 04:00:00 99 mm[Hg] [facility] Heart rate 2021-12-13 04:00:00 74 /min [facility] Respiratory rate 2021-12-13 04:00:00 16 /min [facility] Oxygen saturation in Arterial blood by Pulse oximetry 2021-12-13 04:00:00 94 /min [facility] Body temperature 2021-12-13 01:02:00 36.61 Poornima [facility] Body height 2021-12-13 01:02:00 152.4 cm [facility] Body weight 2021-12-13 01:02:00 74.39 kg [facility] BMI 2021-12-13 01:02:00 32.03 kg/m2 [facility] Procedures Procedure Date / Time Performed Performing Clinicia n Source COMP. METABOLIC PANEL (01989) 2021-12-13 03:22:00 Iris Duncan [facility] CBC WITH DIFF 2021-12-13 03:22:00 [facility] 2021-12-13 02:52:00 Iris Duncan [facility] URINALYSIS 2021-12-13 01:09:00 Iris Duncan [facility] NOTICE OF PRIVACY PRACTICES 2021-12-13 00:59:25 Doctor Unassigned, [place] [facility] CONSENT/REFUSAL FOR DIAGNOSIS AND TREATMENT 2021-12-13 00:53:45 Doctor Unassigned, [place] [facility] Encounters Start Date/Time End Date/Time Encounter Type Admission Type Attending [facility] Care Department Encounter ID Source 2025-05-19 09:30:00 2025-05-19 09:30:00 Outpatient NT90 YANNI VILLAR [id number] [facility] 2025-05-19 00:00:00 2025-05-19 00:00:00 Outpatient RAMILA PETER [id number] [facility] 2025-04-14 00:00:00 2025-04-14 00:00:00 [id number]24-12-04 [facility]:00:00 2024-12-04 00:00:00 Outpatient DOM RICKS [id number] [facility] 2024-10-09 00:00:00 2024-10-09 00:00:00 Outpatient MD YANNI MEI [id number] [facility] 2024-09-24 09:00:00 2024-09-24 09:00:00 Outpatient HANNAH HUBBARD [id number] [facility] 2024-09-22 00:00:00 2024-09-22 00:00:00 Outpatient HANNAH HUBBARD [id number] [facility] 2024-07-31 00:00:00 2024-07-31 00:00:00 Outpatient MD YANNI MEI [id number] [facility] 2024-07-24 00:00:00 2024-07-24 00:00:00 Outpatient TERRENCE PAYNE [id number] [facility] 2024-07-01 00:00:00 2024-07-01 00:00:00 Outpatient HANNAH HUBBARD YANNI VILLAR [id number] [facility] 2024-06-25 11:30:00 2024-06-25 11:30:00 Outpatient LAB47 YANNI VILLAR [id number] [facility] 2024-06-25 11:25:00 2024-06-25 11:25:00 Outpatient YANNI VILLAR [id number] [facility] 2024-06-25 10:45:00 2024-06-25 10:45:00 Outpatient HANNAH HUBBARD YANNI VILLAR [id number] [facility] 2024-06-18 00:00:00 2024-06-18 00:00:00 Outpatient ELMERERYNAN YANNI VILLAR [id number] [facility] 2024-05-22 00:00:00 2024-05-22 00:00:00 Outpatient TERRENCE PAYNE [id number] [facility] 2024-05-21 11:00:00 2024-05-21 11:00:00 Outpatient LAB90 YANNI VILLAR [id number] [facility] 2024-05-21 10:15:00 2024-05-21 10:15:00 Outpatient ELMERTERRENCE YANNI VILLAR [id number] [facility] 2024-03-04 00:00:00 2024-03-04 00:00:00 Outpatient DOM RICKS [id number] [facility] 2024-03-01 00:00:00 2024-03-01 00:00:00 Outpatient DOM RICKS [id number] [facility] 2024-02-01 00:00:00 2024-02-01 00:00:00 Outpatient DOM RICKS [id number] [facility] 2023-11-17 00:00:00 2023-11-17 00:00:00 Outpatient LUIS LOYOLA [id number] [facility] 2023-10-31 09:15:00 2023-10-31 09:15:00 Outpatient LAB47 YANNI VILLAR [id number] [facility] Seybold 2023-10-31 08:45:00 2023-10-31 08:45:00 Outpatient JANELLEPAMELA YANNI VILLAR [id number] Yanni ybmoreno 2023-10-31 00:00:00 2023-10-31 00:00:00 Outpatient ALFRED PARKERCHAYITO YANNI VILLAR [id number] Yanni ybmoreno 2023-10-23 11:00:00 2023-10-23 11:00:00 Outpatient LUIS LOYOLA YANNI VILLAR [id number] Yanni ybmoreno 2023-10-16 10:15:00 2023-10-16 10:15:00 Outpatient JANELLE PAMELA YANNI VILLAR [id number] Yanni ybmoreno 2023-10-11 12:30:00 2023-10-11 12:30:00 Outpatient YANNI VILLAR [id number] Yanni ybmoreno 2023-10-01 10:30:00 2023-10-01 10:30:00 Outpatient YANNI VILLAR [id number] Yanni ybmoreno 2023-09-11 09:30:00 2023-09-11 09:30:00 Outpatient JANELLE PAMELA YANNI VILLAR [id number] Yanni ybmoreno 2023-08-02 00:00:00 2023-08-02 00:00:00 Outpatient DOM RICKS [id number] Yanni Seybmoreno 2023-08-02 00:00:00 2023-08-02 00:00:00 Outpatient DOM RICKS [id number] Yanni Seybmoreno 2023-07-26 08:40:00 2023-07-26 08:40:00 Outpatient YANNI VILLAR [id number] Yanni Seybmoreno 2023-07-26 08:35:00 2023-07-26 08:35:00 Outpatient YANNI VILLAR [id number] Yanni Seybmoreno 2023-07-26 08:30:00 2023-07-26 08:30:00 Outpatient YANNI VILLAR [id number] Yanni Seedgardo 2023-07-24 13:45:00 2023-07-24 13:45:00 Outpatient LAB90 [facility]ANNI [facility]ILLAR [id number] [facility] 13:00:00 2023-07-24 13:00:00 Outpatient HUNDL, DOM VILLAR [id number] Yanni [facility] 2023-03-26 00:00:00 2023-03-26 00:00:00 Outpatient HUNDL, DOM VILLAR [id number] Yanni [facility] 2023-03-09 00:00:00 2023-03-09 00:00:00 Outpatient HUNDL, DOM VILLAR [id number] [facility] 2023-02-22 00:00:00 2023-02-22 00:00:00 Outpatient YANNI VILLAR [id number] [facility] 2023-02-15 11:00:00 2023-02-15 11:00:00 Outpatient HUNDL, DOM VILLAR [id number] [facility] 2023-02-15 00:00:00 2023-02-15 00:00:00 Outpatient PREZASRAMILA [id number] [facility] 2023-02-07 00:00:00 2023-02-07 00:00:00 Outpatient HUNDL, DOM VILLAR [id number] Y[facility] 2023-01-04 10:00:00 2023-01-04 10:00:00 Outpatient CARL Kumar SUHAGillian VILLAR [id number] [facility] 2023-01-01 13:00:00 2023-01-01 13:00:00 Outpatient LEIDA MARTINEZ [id number] [facility] 2022-11-22 00:00:00 2022-11-22 00:00:00 Outpatient HUNDL DOM VILLAR [id number] [facility] 2022-11-12 14:45:00 2022-11-12 14:45:00 Outpatient HUNDZaria, DOM VILLAR [id number] Yanni Kamybmoreno 2022-10-29 09:25:00 2022-10-29 09:25:00 Outpatient LAB90 YANNI VILLAR [id number] [facility] 2022-10-29 00:00:00 2022-10-29 00:00:00 Outpatient DOM RICKS YANNI [id number] Yanni Acevedo 2022-10-26 11:00:00 2022-10-26 11:00:00 Outpatient DOM RICKS YANNI [id number] Yanni Acevedo 2022-10-16 08:47:00 2022-10-17 14:25:00 Inpatient Hannah Doe [facility].01 [id number] [facility] 2022-08-09 07:22:00 2022-08-09 07:22:00 Outpatient Farhana Melo [facility] [id number] [facility] 2022-07-13 00:00:00 2022-07-13 00:00:00 Telephone Shorty Major [facility] ..840.114 [id number] [facility] 2021-12-12 20:52:00 2021-12-12 23:09:00 Emergency X ZORAIDAFRANCISCOELDER FAISALVENKATA [facility] ERT [id number] [facility] 2021-12-12 20:52:00 2021-12-12 23:09:00 Emergency X ZORAIDAFRANCISCOELDER ANNAPAO [facility] ERT [id number] [facility] 2021-12-12 20:52:00 2021-12-12 23:09:00 Emergency Zoraidafranciscoelder Faisalvenkata S [facility] 1..840.114 [id number] [facility] 2016-07-10 11:27:07 2016-07-10 23:59:00 Outpatient SHORTY FRAZIER [facility] RAD [id number] [facility] Results Test Description Test Time Test Comments Results Result Co mments Source CBC W/AUTO [id number] 05:08:00* Test Item Value Reference Range Interpretation Comme nts WHITE BLOOD CELL (test code = WBC) 10.8 K/mm3 6.5-12.3 N RED BLOOD CELL (test code = RBC) 4.58 M/mm3 3.51-4.69 N HEMOGLOBIN (test code = HGB) 13.5 g/dL 10.1-13.8 N HEMATOCRIT (test code = HCT) 40.5 % 32.5-41.8 N MEAN CELL VOLUME (test code = MCV) 88.4 fL 84.6-96.6 N MEAN CELL HGB (test code = MCH) 29.5 pg 27.3-33.9 N MEAN CELL HGB CONCETRATION ( test code = MCHC) 33.3 gm/dL 32.0-34.2 N RED CELL DISTRIBUTION WIDTH (test code = RDW) 12.2 % 12.2-16.3 N PLATELET COUNT (test code = PLT) 228 K/mm3 134-363 N MEAN PLATELET VOLUME (test c ode = MPV) 10.4 fL 9.2-12.7 N NEUTROPHIL % (test code = NT%) 76.0 % 57.9-77.3 N LYMPHOCYTE % (test code = LY%) 16.4 % 14.5-29.7 N MONOCYTE % (test code = MO%) 7.0 % 3.6-10.2 N EOSINOPHIL % (test code = EO%) 0.0 % 0.0-3.0 N BASOPHIL % (test code = BA%) 0.2 % 0.1-0.9 N NEUTROPHIL # (test code = NT#) 8.2 K/mm3 LYMPHOCYTE # (test code = LY#) 1.8 K/mm3 MONOCYTE # (test code = MO#) 0.8 K/mm3 EOSINOPHIL # (test code = EO#) 0 K/mm3 BASOPHIL # (test code = BA#) 0.0 K/mm3 RBC MORPHOLOGY REQUIRED (guerita t code = RBCM) NORMAL NORMAL PLATELET MORPHOLOGY REQUIRED (test code = PLTMR) NORMAL NORMAL UR HCG [id number] 09:49:00* Test Item Value Reference Range Interpretation Comme nts UR HCG QUAL (test code = HCGQLU) NEGATIVE 1. Very dilute u rine specimens, as indicated by a lowspecific gravity, may not contain order entry representative levels ofhCG. 2. False negative results may occur when the levels of hCGare below the sensitivity level of the test. If is still suspected, a first morningurine specimen should be collected 48 hours later andtested. AB HIV 1 17:02:00* Test Item Value Reference Range Interpretation Comme nts AB HIV 1 2 (test code = MFV29HK) NONREACTIVE NONREACTIVE Done by [employer] 4th Gen HIV Ag/Ab Combo Screen AG HEPATITIS B [id number] 17:02:00* Test Item Value Reference Range Interpretation Comme nts AG HEPATITIS B SURFACE (test code = HBSAG) NONREACTIVE NONREACTIVE AB HEPATITIS C [id number] 17:02:00* Test Item Value Reference Range Interpretation Comme nts AB HEPATITIS C (test code = HCVAB) NONREACTIVE NONREACTIVE SIGNAL TO CUTOFF (test code = CUTOFF) 0.19 <0.80 N HCG SERUM [id number] 15:43:00* Test Item Value Reference Range Interpretation Comme nts HCG SERUM QUAL (test code = HCGQL) NEGATIVE CBC W/AUTO [id number] 15:32:00* Test Item Value Reference Range Interpretation Comme nts WHITE BLOOD CELL (test code = WBC) 6.5 K/mm3 6.5-12.3 N RED BLOOD CELL (test code = RBC) 4.74 M/mm3 3.51-4.69 H HEMOGLOBIN (test code = HGB) 14.1 g/dL 10.1-13.8 H HEMATOCRIT (test code = HCT) 42.4 % 32.5-41.8 H MEAN CELL VOLUME (test code = MCV) 89.5 fL 84.6-96.6 N MEAN CELL HGB (test code = MCH) 29.7 pg 27.3-33.9 N MEAN CELL HGB CONCETRATION ( test code = MCHC) 33.3 gm/dL 32.0-34.2 N RED CELL DISTRIBUTION WIDTH (test code = RDW) 12.3 % 12.2-16.3 N PLATELET COUNT (test code = PLT) 243 K/mm3 134-363 N MEAN PLATELET VOLUME (test c ode = MPV) 10.7 fL 9.2-12.7 N NEUTROPHIL % (test code = NT%) 58.9 % 57.9-77.3 N LYMPHOCYTE % (test code = LY%) 32.9 % 14.5-29.7 H MONOCYTE % (test code = MO%) 5.8 % 3.6-10.2 N EOSINOPHIL % (test code = EO%) 1.2 % 0.0-3.0 N BASOPHIL % (test code = BA%) 0.9 % 0.1-0.9 N NEUTROPHIL # (test code = NT#) 3.8 K/mm3 LYMPHOCYTE # (test code = LY#) 2.1 K/mm3 MONOCYTE # (test code = MO#) 0.4 K/mm3 EOSINOPHIL # (test code = EO#) 0.08 K/mm3 BASOPHIL # (test code = BA#) 0.1 K/mm3 RBC MORPHOLOGY REQUIRED (guerita t code = RBCM) NORMAL NORMAL PLATELET MORPHOLOGY REQUIRED (test code = PLTMR) NORMAL NORMAL URINALYSIS [id number] 15:28:00* Test Item Value Reference Range Interpretation Comme nts UA COLOR (test code = COLU) YELLOW YELLOW UA APPEARANCE (test code = APPU) CLEAR CLEAR UA GLUCOSE DIPSTICK (test co de = DGLUU) NEGATIVE NEG UA BILIRUBIN DIPSTICK (test code = BILU) NEGATIVE NEG UA KETONE DIPSTICK (test cod e = KETU) NEGATIVE NEG UA SPECIFIC GRAVITY (test co de = SGU) 1.012 1.001-1.035 N UA BLOOD DIPSTICK (test code = MAEGAN) NEG NEG UA PH DIPSTICK (test code = TYLOR) 6.0 5-9 UA PROTEIN DIPSTICK (test co de = PROU) NEGATIVE NEG UA UROBILINIOGEN DIPSTICK (test code = URO) NEGATIVE mg/dL NEG UA NITRITE DIPSTICK (test co de = ROLO) NEG NEG UA LEUKOCYTE ESTERASE DIPSTI CK (test code = LEUU) 3+ NEG A UA WBC (test code = WBCU) 11-15 #/hpf NONE SEEN A UA RBC (test code = RBCU) 3-5 #/hpf NONE SEEN A UA EPITHELIAL CELLS (test co de = EPIU) FEW #/HPF RARE-FEW UA BACTERIA (test code = BACU) RARE /HPF RARE-FEW UA MUCUS (test code = MUCU) RARE NONE SEEN URINE SAMPLE: CLEAN CATCHUR HCG [id number] 08:41:00* Test Item Value Reference Range Interpretation Comme nts UR HCG QUAL (test code = HCGQLU) NEGATIVE 1. Very dilute u rine specimens, as indicated by a lowspecific gravity, may not contain order entry representative levels ofhCG. 2. False negative results may occur when the levels of hCGare below the sensitivity level of the test. If is still suspected, a first morningurine specimen should be collected 48 hours later andtested. CREATININE W ESTIMATED [id number] 08:21:00* Test Item Value Reference Range Interpretation Comme nts BEDSIDE CREATININE (test cod e = CREATBED) 0.66 mg/dL 0.51-1.19 N GLOMERULAR FILTRATION RATE P OC (test code = GFRBED) >60 58-135 N - MRI PELVIS W WO [id number] 00:00:00 [facility] 1975 Sex: F Patient Name: CLINT MIGUEL Unit No: [id number] EXAMS: CPT CODE: [id number] MRI PE LVIS W WO CONT [id number] PROCEDURE INFORMATION: Exam: MR Pelvis Without and With Contrast; Uterus and Adnexa Exam date and time: 08/09/2022 8:33 AM Age: 46 years old Clinical indication: Other: Pelvic mass; Prior surgery; Surgery date: 6+ months; Surgery type: Tubal ligation. () TECHNIQUE: Imaging protocol: Magnetic resonance imaging of the pelvis without and with contrast. Exam focused on the uterus and adnexa. Contrast material: DOTAREM; Contrast volume: 14 ml; Contrast route: INTRAVENOUS (IV); COMPARISON: No relevant prior studies available. FINDINGS: Uterus: Uterus measures approximately 12cm length. 8 cm intramural fibroid in the fundus demonstrating heterogeneous intermediate and high T2 and isointense T1 signal with mild enhancement. Cervix: Tiny nabothian cysts in the cervix. Rightovary/adnexa: A 10.2 cm well-marginated mass with high T2 and low T1 signal without enhancement abuts the right ovary. Left ovary/adnexa: The left ovary is visualized and contains a few follicles. Urinary bladder: The bladder is unremarkable. Intraperitoneal space: No significant free fluid. Lymph nodes: No enlarged lymph nodes. Soft tissues: Appear unremarkable. Other findings: Degenerative discdesiccation lumbar spine. IMPRESSION: 1. 10 cm cystic mass right adnexa consistent with an ovarian or paraovarian cyst. Consider surgical resection. 2. 8 cm partially degenerated uterine fibroid. at 1135 Reported and signed by: Karthikeyan Ocasio MD CC: Farhana Gore MD Technologist: Chirag Knight, RT,MR,CT Trnscrbd D/ (9600)GCD.CPS Orig Print D/T: S: 08/09/2022 (0303) [facility] NAME: CLINT MIGUEL Radiology Department PHYS: YOEL.Andrea - Farhana Gore [address] : 1975 AGE: 46 SEX: F [place], [place] [address] LOC: F.RAD PHONE #: [phone] EXAM DATE: 08/09/2022 STATUS: REG CLI FAX #: [phone] RAD NO: Page 1 Signed Report- MRI ABDOMEN W WO [id number] 00:00:00 [facility] : 1975 Sex: F Patient Name: CLINT MIGUEL Unit No: [id number] EXAMS: CPT CODE: [id number] MRI A BDOMEN W WO CONT [id number] PROCEDURE INFORMATION: Exam: MR Abdomen Without and With Contrast Exam date and time: 08/09/2022 9:29 AM Age: 46 years old Clinical indication: Other: Pelvic mass; Prior surgery; Surgery date: 6+ months; Surgery type: Tubal ligation. () TECHNIQUE: Imaging protocol: Magnetic resonance imaging of the abdomen without and with contrast. Contrast material: DOTAREM; Contrast volume: 14 ml; Contrast route: INTRAVENOUS (IV); COMPARISON: MRI PELVIS W W/O CONT 08/09/2022 8:33 AM FINDINGS: Liver: Unremarkable. Gallbladder and bile ducts: No gallstone is seen. No biliary dilation.Pancreas: Unremarkable. Spleen: Unremarkable. Adrenal glands: Unremarkable. Kidneys and ureters: The kidneys are incompletely imaged on the postcontrast axial images. Small partially exophytic cyst lower right kidney. Stomach and bowel: No bowel obstruction. Intraperitoneal space: 10 cm cystic massright lower quadrant is incompletely imaged. No free fluid. No enlarged lymph nodes are seen. Vascul ature: No abdominal aortic aneurysm. Bones/joints: Negative acute. Soft tissues: Appear unremarkable. IMPRESSION: 1. 10 cm cystic mass right lower quadrant is incompletely imaged. Refer to MRI pelvis. 2. Small cyst right kidney. COMMENTS: Consistent with the [employer]'s Incidental Findings Committee white paper (J Am Christie Radiol 2018): Any incidental renal lesion less than 1 cm or classified as too small to characterize, or any incidental cystic renal lesion characterized assimple-appearing, is likely benign. No follow-up imaging is recommended for these lesions per consensus recommendations based on imaging criteria. [facility] NAME: CLINT MIGUEL Radiology Department PHYS: Farhana Archuleta [address] : 1975 AGE: 46 SEX: F [place], [place] [address] LOC: F.RAD PHONE #: [phone] EXAM DATE: 08/09/2022 STATUS: REG CLI FAX #: [phone] RAD NO: Page 1 Signed Report (CONTINUED) Patient Name: CLINT MIGUEL Unit No: [id number] EXAMS: CPT CODE: [id number] MRI ABDOMEN W WO CONT [id number] (C ontinued) at 1156 Reported and signed by: Karthikeyan Ocasio MD CC: Farhana Gore MD Technologist: Chirag Knight, RT,MR,CT Trnscrbd D/ (1156) GCD.CPS Orig Print D/T: S: 08/09/2022 (1157) [facility] NAME: NAEEM HALEYDA Radiology Department PHYS: MURCH.05 - Farhana Gore [address] : 1975 AGE: 46 SEX: F [place], [place] [address] LOC: Annabelle.RAD PHONE #: [phone] EXAM DATE: 08/09/2022 STATUS: REG CLI FAX #: [phone] RAD NO: Page 2 Signed ReportCOMP. METABOLIC PANEL (43622)2021-12-13 03:44:02* Test Item Value Reference Range Interpretation Comme nts NA (test code = 9976510279) 140 mmol/L 135-145 K (test code = 8319447980) 4.0 mmol/L 3.5-5.0 CL (test code = 2250218183) 101 mmol/L 98-108 CO2 TOTAL (test code = 3351826080) 27 mmol/L 23-31 AGAP (test code = 4312684347) 2-16 BUN (test code = 4618791552) 10 mg/dL 7-23 GLUCOSE (test code = 9514927874) 88 mg/dL 70-110 CREATININE (test code = 5589855770) 0.50 mg/dL 0.50-1.04 TOTAL BILI (test code = 6546253206) 0.6 mg/dL 0.1-1.1 CALCIUM (test code = 3536709443) 8.5 mg/dL 8.6-10.6 L T PROTEIN (test code = 0532019951) 7.5 g/dL 6.3-8.2 ALBUMIN (test code = 7712873040) 4.5 g/dL 3.5-5.0 ALK PHOS (test code = 6025393985) 60 U/L 34-122 ALTv (test code = 1742-6) 23 U/L 5-35 AST(SGOT) (test code = 1078243960) 26 U/L 13-40 eGFR (test code = 7673630062) mL/min/1.73m2 BOBBY (test code = BOBBY) Association of Glomerular Filtration Rate (GFR) and Staging of Kidney Disease* + --+ --+ ------+| GFR (mL/min/1.73 m2) ?| With Kidney Damage ?| ?Without Kidney Damage+ --------+ --------+ +| ?>90 ?| ?Stage one ?| ? Normal ?+ ---+ ---+ -------+| ?60-89 ?| ?Stage two ?| ? Decreased GFR ? + --+ --+ ------+| ?30-59 ?| ?Stage three ?| ? Stage three ? + --+ --+ ------+| ?15-29 ?| ?Stage four ? | ? Stage four ?+ ---+ ---+ -------+| ?<15 (or dialysis) ? ?| ?Stage five ? | ? Stage five ?+ ---+ ---+ -------+ *Each stage assumes the associated GFR [...] imaging tests). Lab Interpretation (test code = 78812-5) Abnormal [facility] WITH [id number] 03:30:42* Test Item Value Reference Range Interpretation Comme nts WBC (test code = 6690-2) See_Comment [Automated [employer]] The system which generated this result transmitted reference range: 4.30 - 11.10 10*3/?L. The reference range was not used to interpret this result as normal/abnormal. RBC (test code = 789-8) See_Comment [Automated [employer]] The system which generated this result transmitted reference range: 3.93 - 5.25 10*6/?L. The reference range was not used to interpret this result as normal/abnormal. HGB (test code = 718-7) 14.3 g/dL 11.6-15.0 HCT (test code = 4544-3) 42.8 % 35.7-45.2 MCV (test code = 787-2) 87.5 fL 80.6-95.5 MCH (test code = 785-6) 29.2 pg 25.9-32.8 MCHC (test code = 786-4) 33.4 g/dL 31.6-35.1 RDW-SD (test code = 90471-6) 42.4 fL 39.0-49.9 RDW-CV (test code = 788-0) 13.3 % 12.0-15.5 PLT (test code = 777-3) See_Comment [Automated [employer]] The system which generated this result transmitted reference range: 166 - 358 10*3/?L. The reference range was not used to interpret this result as normal/abnormal. MPV (test code = 40006-5) 10.7 fL 9.5-12.9 NRBC/100 WBC (test code = 4576440533) See_Comment [Automated [employer]] The system which generated this result transmitted reference range: 0.0 - 10.0 /100 WBCs. The reference range was not used to interpret this result as normal/abnormal. NRBC x10^3 (test code = 7724198277) <0.01 See_Comment [Automated [employer]] The system which generated this result transmitted reference range: 10*3/?L. The reference range was not used to interpret this result as normal/abnormal. GRAN MAT (NEUT) % (test code = 770-8) 52.4 % IMM GRAN % (test code = 0389847889) 0.20 % LYMPH % (test code = 736-9) 36.1 % MONO % (test code = 5905-5) 8.6 % EOS % (test code = 713-8) 2.3 % BASO % (test code = 706-2) 0.4 % GRAN MAT x10^3(ANC) (test code = 4152937866) 2.56 10*3/uL 1.88-7.09 IMM GRAN x10^3 (test code = 1698673127) <0.03 0.00-0.06 LYMPH x10^3 (test code = 731-0) 1.76 10*3/uL 1.32-3.29 MONO x10^3 (test code = 742-7) 0.42 10*3/uL 0.33-0.92 EOS x10^3 (test code = 711-2) 0.11 10*3/uL 0.03-0.39 BASO x10^3 (test code = 704-7) <0.03 0.01-0.07 [id number]:52:[facility]* Test Item Value Reference Range Interpretation Comme nts POCT PREG (test code = 1605) negative On board controls acceptable with C Line (test code = 3574) present POCT PREG LOT # (test code = 3575) [id number] POCT PREG TEST DATE ( test code = 3576) 05/25/2023 Lab Interpretation (test cod e = 91572-8) Normal [facility] Notes Date/Time Note Provider Source 2024-06-25 10:18:30 Chief Complaint Patient presents with Consultation Rheumatoid arthritis Loida Barragan CMA I [place]: #[id number] [facility] 2024-05-21 10:03:18 Chief Complaint Patient presents with Back Pain Low, right side back pain that radiates down leg. She had an accident at work in April. Ainsley Muhammad MA II [facility] 2023-10-31 08:38:39 Chief Complaint Patient presents with Well Woman Exam [facility] 2023-10-23 10:30:14 Chief Complaint Patient presents with Back Pain Right mid back pain x 4-5 months. Says fell down the bleachers at a football game April 2023. Pain comes with reaching up high to get something and sometimes shoot up or down right hand and arm. Has tried ibuprofen. ROSIE Pettit II [facility] 2023-10-16 10:08:51 Chief Complaint Patient presents with Follow-up Pelvic US 10/11/[address] [facility] 2023-09-11 09:02:40 Chief Complaint Patient presents with Pelvic Pain Pt states she has been having lower pelvic pain she had a fall back in June states she was referred by another provider to come to OBGYN for her pelvic pain currently is taking medications for a uti states she had a right ovarian cyst removal in 2021. No more cycles but states she only has lower pelvic pain. Phill Connor CMA I [facility] 2022-10-17 09:10:00 [facility] ([facility]) Gynecology Post Prog Note REPORT#:[id number] REPORT STATUS: Signed DATE:10/17/22 TIME: 909 PATIENT: CLINT MIGUEL UNIT #: [id number] ROOM/BED: [address] : [birth year] AGE: 47 SEX: F ATTEND: Hannah Hannon MD ADM AUTHOR: Hannah Hannon MD * ALL edits or amendments must be made on the electronic/computer document * General Post-op: day 1 Status post: RATLHBS, Right ovarian cystectomy, EOE Subjective Comments: Pt doing well. State she had BP problems over 10 yrs ago but has not been on meds recently. Pt ambrosio reg diet and voiding well. Pain controlled. Objective General VS/I O: Vital Signs: Date Time Temp Pulse Resp B/P B/P Pulse O2 O2 Flow FiO2 Mean Ox Delivery Rate 10/17 0817 99.0 97 18 145/92 109.6 94 10/17 0421 99.1 93 120/76 90.5 94 10/17 0016 98.6 95 22 146/84 104.4 95 10/16 2306 102 179/101 126.6 95 10/16 1940 99.0 98 19 156/97 116.5 96 Room air 10/16 1851 102 17 162/97 118.6 10/16 1804 89 171/91 117.5 10/16 1758 96 173/112 132.5 10/16 1613 98.2 16 10/16 1512 75 16 175/105 128.6 97 10/16 1358 97.7 79 18 159/96 116.8 96 10/16 1330 69 17 149/87 99 Room air 10/16 1315 73 16 121/72 100 Room air 10/16 1308 68 15 103/58 100 Simple 10 mask 10/16 1303 Simple 10 mask 10/16 1300 97.7 70 11 88/51 100 Simple 10 mask 10/16 1256 97.7 72 16 89/53 100 Simple 10 mask 10/16 0947 155/100 Last Documented: Result Date Time Pulse Ox 94 10/17 0817 B/P 145/92 10/17 0817 B/P Mean 109.6 10/17 0817 Temp 99.0 10/17 0817 Pulse 97 10/17 0817 Resp 18 10/17 0817 O2 Delivery Room air 10/16 1940 O2 Flow Rate 10 10/16 1308 24 hour I O ending at 0700: 10/17 0700 10/16 1900 Intake Total 2200.00 Output Total 1100 Balance 1100.00 Intake, IV 2200.00 Number Voids 3 Output, 50 Estimated Blood Loss Output, Urine 1050 Patient 72.5 kg Weight Weight Standing scale Measurement Method PATIENT WEIGHT: Weight (lb): 159 Weight (oz): 13.36 Weight (kg): 72.500 Physical Exam General appearance: alert, awake Wound/incision: Location: abd Site condition: edges approximated, incision intact Abdomen: normal bowel sounds, soft, no distention Results Findings/Data: Laboratory Tests 10/17 0445 Hematology WBC (6.5 - 12.3 K/mm3) 10.8 RBC (3.51 - 4.69 M/mm3) 4.58 Hgb (10.1 - 13.8 g/dL) 13.5 Hct (32.5 - 41.8 %) 40.5 MCV (84.6 - 96.6 fL) 88.4 MCH (27.3 - 33.9 pg) 29.5 MCHC (32.0 - 34.2 gm/dL) 33.3 RDW (12.2 - 16.3 %) 12.2 Plt Count (134 - 363 K/mm3) 228 MPV (9.2 - 12.7 fL) 10.4 Neut % (Auto) (57.9 - 77.3 %) 76.0 Lymph % (Auto) (14.5 - 29.7 %) 16.4 [place] % (Auto) (3.6 - 10.2 %) 7.0 Eos % (Auto) (0.0 - 3.0 %) 0.0 Baso % (Auto) (0.1 - 0.9 %) 0.2 Neut # (Auto) (K/mm3) 8.2 Lymph # (Auto) (K/mm3) 1.8 [place] # (Auto) (K/mm3) 0.8 Eos # (Auto) (K/mm3) 0 Baso # (Auto) (K/mm3) 0.0 Diagnosis, Assessment Plan Free Text A P: Overall doing well. BP improved this AM but elevated most of yesterday. HD stable and good GI fxn. Plan: Will increase to Procardia XL 60 mg If BP are improved and stable, d/c later today Pt to f/u with PCP JIA Precautions given at 0914 RPT #:[id number] END OF REPORT [facility] 2022-10-16 14:19:00 [id number] [facility] [address] [place], [place] [address] PATIENT NAME: CLINT MIGUEL ADMIT DATE: 10/16/22 ACCOUNT NO: [id number] ROOM NO: Replaced By [facility] AGE: 47 SEX: F ADMITTING PHYSICIAN: Hannah Hannon MD ATTENDING PHYSICIAN: Hannah Hannon MD OPERATION DATE: 10/16/2022 PREOPERATIVE DIAGNOSES: 1. Enlarged fibroid uterus. 2. Right adnexal mass. 3. Pelvic pain. 4. Pelvic pressure. POSTOPERATIVE DIAGNOSES: 1. Enlarged fibroid uterus. 2. Right ovarian cyst. 3. Pelvic pain. 4. Pelvic pressure. 5. Endometriosis. PROCEDURES: 1. Robotically assisted total laparoscopic hysterectomy and bilateral salpingectomy. 2. Robotic-assisted laparoscopic right ovarian cystectomy. 3. Robotic-assisted laparoscopic excision of endometriosis. SURGEON: Hannah Hannon MD ART TRACER: Dimitri Matta ANESTHESIA: General. ESTIMATED BLOOD LOSS: 50 mL. INTRAVENOUS FLUIDS: 1700 mL. URINE OUTPUT: 350 mL of clear urine. COMPLICATIONS: None. COUNTS: Correct. FINDINGS: A 12-week size fibroid uterus with an 8 cm fundal intramural fibroid, 10 cm right simple ovarian cyst, dense endometrial implants on the left pelvic sidewall. Normal appearing left ovary and tube. INDICATIONS: The patient is a 47-year-old 3, para 3, who presented with pelvic pain. The patient was found on CT, ultrasound and MRI to have an PATIENT NAME: CLINT MIGUEL enlarged uterus measuring approximately 12 cm with 8 cm intramural fibroid, 10.2 cm mass adjacent to the right ovary was also seen on MRI. Risks, benefits, and alternatives were discussed with the patient. The patient agreed to robotically assisted total laparoscopic hysterectomy with bilateral salpingectomy with right ovarian cystectomy, possible right oophorectomy and indicated procedures. PROCEDURE IN DETAIL: The patient was taken to the OR with IV in place. She was induced under general anesthesia without difficulty. The patient was given Ancef preoperatively for prophylaxis. She was placed in dorsal lithotomy position in [facility]. She was prepped and draped in the usual sterile manner. Plasencia catheter was placed in bladder sterilely. Anterior lip of cervix was grasped with a single tooth tenaculum. Uterus was gently sounded to 9 cm. Cervix was gently dilated from size 9 to size 16 using Maximino dilators. Stay sutures of 0 Prolene were placed at 3 o'clock and 9 o'clock, 8 cm TREY uterine manipulator, 3.5 cm colpotomizer ring and vaginal occluder were then placed in the uterus on the cervix and in the vagina respectively. These were attached to stay sutures. Vaginal occluder was filled with 60 mL of saline. The patient was then placed flat. Attention was then turned to the abdomen. An 8 mm vertical incision was made through the umbilicus. With the abdomen tented up, Veress needle was passed through what was felt to be fascia and peritoneum. Hanging drop test was within normal limits. CO2 gas was then used to insufflate the abdomen with pressure limit set at 20 mmHg. After pressure limit was achieved, the Veress needle was removed. An 8 mm bladeless trocar was inserted easily. Laparoscope confirmed safe entry. The patient was then placed in Trendelenburg. Survey of the upper abdomen was within normal limits. Survey of the pelvis with a markedly enlarged uterus with large right ovarian cyst in the upper abdomen. Omental adhesions were noted to the anterior abdominal wall and to the left pelvic brim. Three ancillary ports were then placed under direct visualization, all 8 mm ports, one in the right lower lateral quadrant on the left lateral quadrant and AirSeal port in the left upper quadrant. Pressure limit was dropped to 15 mmHg. Robot was docked. Fenestrated bipolar instrument was placed in the left lower quadrant. Monopolar scissors were placed in the right lower quadrant. Adhesions of the omentum to the anterior abdominal wall carefully excised. Attention was then turned to the left pelvic brim. Due to obstructed visualization of the left adnexa, the adhesions of the left colon to the left pelvic brim were carefully lysed with extreme care to avoid injuring colon or the ureter. At that point, the uterus was noted to be markedly asymmetric with approximately a 12-week size uterus with a large 8 cm fundal intramural fibroid. Right normal-appearing ovary was adjacent to approximately 10 cm paraovarian cyst. Fimbria was noted to be markedly thinned out over the cyst. Attention was first turned to the right cyst. The right tube was cauterized and divided using bipolar instrument and monopolar scissors adjacent to the cyst. Mesosalpinx was then incised using monopolar scissors. The junction of the normal- appearing ovarian tissue and the cyst was cauterized using bipolar instrument then divided using monopolar scissors. The cyst at that point was completely detached with the cyst intact. The IP ligament was inspected and was noted to be intact and within normal limits. Attention was then turned to the left fallopian tube. There was a Falope ring was noted on the left tube. Medial to the Falope ring, the tube was cauterized using bipolar instrument then divided using monopolar scissors. Mesosalpinx was incised from the proximal end to the fimbriated end. Tube was then detached and removed through the commercial loan assistant port. The left uteroovarian ligament and round ligament was cauterized using bipolar instrument then divided using monopolar scissors. Bladder was then back filled. Anterior leaf of the peritoneum was then incised in the left side to and PATIENT NAME: CLINT MIGUEL carried out medially to develop the bladder flap. Bladder was dissected off the lower uterine segment. Uterine vessels were then skeletonized on the left side by incising posterior peritoneum. Uterine vessels were then cauterized at the level of the internal cervical os. Attention was then turned to the right side. Right round ligament was cauterized using bipolar instrument then divided using monopolar scissors. Right uteroovarian ligament was then cauterized using bipolar instrument then divided using monopolar scissors. Anterior leaf of the peritoneum was incised and carried out medially to meet the other side. Bladder was additionally dissected off lower uterine segment. Uterine vessels were skeletonized on the right side by assist posterior peritoneum. Uterine vessels were then cauterized at the level of the internal cervical os. After assuring that the bladder was well dissected off the lower uterine segment colpotomy was performed at the cervicovaginal junction anteriorly from 10 o'clock to 2 o'clock. Uterine vessels on the right side were again cauterized and using bipolar instrument then divided using monopolar scissors. Colpotomy was continued posteriorly over to the left side. Left uterine vessels were cauterized using bipolar instrument then divided using monopolar scissors. Colpotomy was completed at that point. The cervix was brought out through the vagina; however, due to the bulk of the body of the uterus, a #11 blade scalpel was used to vaginally manually morcellate the uterus using the ExCITE method. The uterus was then delivered in one specimen. At that point, a 15 cm endoscopic bag was introduced into the abdomen through the open vaginal cuff. The right ovarian cyst was placed within the bag. The opening of the bag was brought out through the vagina and outside of the body. The cyst was drained within the bag to allow passage through the vaginal cuff. Clear serous fluid drained outside the bag, outside of the vagina, and to under buttocks drape. 0 V-Loc suture was introduced into the pelvis. A sterile sponge and a glove was placed to maintain pneumoperitoneum. Vaginal cuff was then closed in 2 layers using 0 V- Loc suture, first layer was reapproximated vaginal mucosa from right apex over to left apex. The same suture was used to reapproximate the endopelvic fascia from left apex over to the right apex. Suture was then ran back towards the midline. Suture was cut flush with the cuff. Pelvis was then thoroughly irrigated and checked inspected under low pressure. All vascular pedicles were inspected and good hemostasis was noted. All instruments were then removed. Robot was then docked. Pneumoperitoneum was evacuated. All trocars were removed. The umbilical port site fascia was closed using 0 Vicryl interrupted suture. Skin was closed using 4-0 Vicryl interrupted suture in all port sites and sealed with Dermabond, 0.25% Marcaine was injected in all port sites. Plasencia catheter was removed. Speculum exam of vagina revealed that the cuff was intact and hemostatic. No vaginal lacerations were noted. The patient was transferred to recovery room in good condition. Throughout the case, Dimitri Matta acted as commercial loan assistant. He provided protection and retraction. He performed suction for visualization. He participated in positioning the patient, as well as closure of the wounds. Without his assistance, the surgery could not have been performed safely or to adequate accepted medical standards. Therefore, his assistance was considered medically indicated and necessary. Dictated By: Hannah Hannon MD Date Dictated: 10/16/2022 14:19:17 Date Transcribed: 10/16/2022 17:43:18 FRANCOIS/SHADY/BLAYNE/TARA PATIENT NAME: ELISABET MIGUELERALDA Receipt ID: [id number] Authenticated and Edited by Hannah Hannon MD On 10/19/22 2:11:01 PM at 0213 PATIENT NAME: [facility]CLINT [facility]"
[2025-05-19 10:44] LABS: Absolute Lymphocytes (CBC) 2.2 K/uL (0.7-4.9); Hematocrit 44.5 % (36.0-45.0); Hemoglobin 15.1 g/dL (12.0-15.0); MCH 28.8 pg (27.0-35.0); MCHC 34.0 g/dL (32.0-36.0); MCV 84.8 fL (80-100); MPV 8.1 fL (7.6-11.3); Nucleated RBC Absolute Count 0.0 (0-0); Nucleated Red Blood Cells % 0.3 % (0-0); RBC Red Blood Cell Count 5.25 M/uL (3.86-4.86); White Blood Count 6.30 thou/uL (4.3-10.9)
[2025-05-19] MEDS ORDERED: ONDANSETRON 4 MG/2 ML VIAL ONE (11:02)
[2025-05-19] MEDS ORDERED: FAMOTIDINE 20 MG/2 ML VIAL IV ONE (11:02)
[2025-05-19] MEDS ORDERED: KETOROLAC 30 MG/ML INJ ONE (11:02)
[2025-05-19] MEDS ORDERED: NA CHLORIDE 0.9% 1,000 ML ONE (11:03)
--- NOTE | 2025-05-19 11:05 | RAD REPORT ---
EXAM: Right upper quadrant ultrasound. CLINICAL HISTORY: ABD PAIN COMPARISON: None. FINDINGS: Gallbladder: Normal. Bile ducts: No intrahepatic or extrahepatic biliary dilatation. Common bile duct measures 4 mm. Limited imaging of the liver shows no concerning finding. IMPRESSION: Unremarkable exam.
[2025-05-19 11:19] LABS: ALT/SGPT 27.0 U/L (13-56); AST/SGOT 11.0 U/L (15-37); Albumin 3.9 g/dL (3.4-5.0); Albumin/Globulin Ratio 0.9 (1.1-1.8); Alkaline Phosphatase 89.0 U/L (45-117); Anion Gap 8.9 mEq/L (5.0-15.0); BUN Blood Urea Nitrogen 14.0 mg/dL (7-18); Globulin 4.3 g/dL (2.3-3.5); Glucose Level 90.0 mg/dL (74-106); Lipase 44.0 U/L (13-75); Potassium 3.9 mEq/L (3.5-5.1)
--- NOTE | 2025-05-19 11:51 | RAD REPORT ---
EXAMINATION: CT ABDOMEN AND PELVIS WITH CONTRAST CLINICAL INDICATION: ABD PAIN TECHNIQUE: CT abdomen and pelvis was performed, after the administration of IV contrast, as per [facility] protocol. Axial, sagittal and coronal reconstructions were obtained. One or more of the following dose reduction techniques were used: Automated exposure control, adjustment of the mA and k V according to patient size, and iterative reconstruction. Unless otherwise specified, incidental findings do not require dedicated imaging follow-up. COMPARISON: 07/12/2022 FINDINGS: LOWER CHEST: The visualized lung bases are clear. LIVER: Normal in size and contour. No focal lesion. Grossly unremarkable gallbladder. SPLEEN: Normal size. No focal lesion. PANCREAS: No mass, ductal dilation, or leilani-pancreatic fluid. ADRENALS: Normal; no mass. KIDNEYS: Normal size and contour. No hydronephrosis. GASTROINTESTINAL TRACT: No evidence of free air, significant intra-abdominal free fluid, bowel obstru ction or abscess. There is mild diverticulosis coli of the sigmoid colon without diverticulitis. APPENDIX: Normal appendix. LYMPH NODES: No lymphadenopathy. MUSCULOSKELETAL: Moderate lower lumbar spondylosis. ADDITIONAL FINDINGS: None. IMPRESSION: No acute or concerning abnormalities seen in the abdomen or pelvis.
--- NOTE | 2025-05-19 12:06 | EDPHYS ---
Physician Documentation [facility] Name: Jeannine Alvarenga Age: 49 yrs Sex: Female : 1975 Arrival Date: 05/19/2025 Time: 10:11 Bed 25 Private MD: ED Physician Ciro Isaac HPI: 05/19 10:38 This 49 yrs old Female presents to ER via Ambulatory with complaints of kb Abdominal Pain, Back Pain, Headache. 10:38 Patient is a 49-year-old female who presents for upper abdominal pain that radiates kb around to back and up to the right shoulder that started 8 days ago with nausea and vomiting. Denies fever, diarrhea. baseball scout used #[id number]. 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 - Infectious Disease History:: Denies. - Social history:: Smoking status: Patient denies any tobacco usage or history of. ROS: 11:57 Constitutional: As per HPI kb Exam: 11:58 Constitutional: This is a well developed, well nourished patient who is awake, alert, kb and in no acute distress. Head/Face: Normocephalic, atraumatic. ENT: Moist Mucous membranes Cardiovascular: Regular rate Respiratory: Respirations even and unlabored. No increased work of breathing. Talking in full sentences Skin: Warm, dry with normal turgor. Normal color. MS/ Extremity: Pulses equal, no cyanosis. Neurovascular intact. Full, normal range of motion. Neuro: Awake and alert, GCS 15, oriented to person, place, time, and situation. 11:58 Abdomen/GI: Inspection: abdomen appears normal, Bowel sounds: normal, Palpation: soft, in all quadrants, mild abdominal tenderness, in the right upper quadrant, Vital Signs: 10:22 BP 126 / 88; Pulse 84; Resp 16; Temp 98.2; Pulse Ox 100% ; Weight 70.76 kg; Pain 8/10; dd2 12:10 BP 121 / 82; Pulse 82; Resp 18; Pulse Ox 100% on R/A; Pain 0/10; rg5 10:22 Pain Scale: Adult dd2 12:10 Pain Scale: Adult rg5 MDM: 10:15 Medical Screening Exam initiated kb 12:40 Differential diagnosis: cholecystitis, Cholelithiasis, gastritis, myocardia ischemia or kb infarction, non-specific abd pain, pancreatitis. Data reviewed: vital signs, nurses notes. Counseling: I had a detailed discussion with the patient and/or guardian regarding the historical points, exam findings, and any diagnostic results supporting the discharge/admit diagnosis, lab results, radiology results, the need for outpatient follow up, a metal riveter, to return to the emergency department if symptoms worsen or persist or if there are any questions or concerns that arise at home. 05/19 10:27 Order name: CBC with Diff; Complete Time: 10:48 kb 05/19 10:27 Order name: CMP; Complete Time: 11:39 kb 05/19 10:27 Order name: Lipase; Complete Time: 11:39 kb 05/19 10:27 Order name: US Abdomen Limited; Complete Time: 11:07 kb 05/19 11:07 Order name: CT Abd/Pelvis - IV Contrast Only; Complete Time: 11:51 kb 05/19 10:27 Order name: IV Saline Lock; Complete Time: 10:39 kb 05/19 10:27 Order name: Labs collected and sent; Complete Time: 10:39 kb Administered Medications: 11:25 Drug: Famotidine IVP 20 mg IVP once; dilute with 10 mL 0.9% NaCl; give over 2 minutes ll1 Route: IVP; Site: left antecubital; 12:15 Follow up: Response: No adverse reaction rg5 11:25 Drug: TORadol - Ketorolac IVP 15 mg IVP once Route: IVP; Site: left antecubital; ll1 12:16 Follow up: Response: No adverse reaction; Pain is decreased rg5 11:25 Drug: Ondansetron IVP 4 mg IVP once; over 2 minutes Route: IVP; Site: left antecubital; ll1 12:16 Follow up: Response: No adverse reaction rg5 11:25 Drug: NS 0.9% IV 1000 ml IV at 1 bolus Per protocol; to be given as a bolus over 60 ll1 minutes Route: IV; Rate: 1 bolus; Site: left antecubital; 12:16 Follow up: IV Status: Completed infusion rg5 Disposition Summary: 05/19/25 12:05 Discharge Ordered Notes: Location: Home kb Condition: Stable kb Diagnosis - Upper abdominal pain, unspecified kb Followup: kb - With: Emergency Department - When: As needed - Reason: Worsening of condition Followup: kb - With: Private Physician - When: 2 - 3 days - Reason: Recheck today's complaints, Continuance of care, Re-evaluation by your physician Discharge Instructions: - Discharge Summary Sheet kb - Abdominal Pain, Adult, [id number] kb Forms: - Medication Reconciliation Form kb - Antibiotic Education kb - Prescription Opioid Use kb - Patient Portal Instructions kb - Leadership Thank You Letter kb Signatures: Dispatcher [employer] Carley Rincon, MAINTENANCE MECHANIC-C HEMANTH-Dora Ambriz RN RN ll1 VLADIMIR MARSHALL RN RN dd2 Oliver Jimenez RN rg5
--- NOTE | 2025-05-19 12:06 | ER ---
Nurse's Notes [facility] Name: Jeannine Alvarenga Age: 49 yrs Sex: Female : 1975 Arrival Date: 05/19/2025 Time: 10:11 Bed 25 Private MD: Diagnosis: Upper abdominal pain, unspecified Presentation: 05/19 10:22 Chief complaint: Patient states: UPPER STOMACH PAIN THAT RADIATES TO MIDDLE AND UPPER dd2 BACK, HEADACHE, BLURRED VISION, N/V FOR 8 DAYS. Coronavirus screen: At this time, the client does not indicate any symptoms associated with coronavirus-19. Ebola Screen: No symptoms or risks identified at this time. Initial Sepsis Screen: Does the patient meet any 2 criteria? No. Patient's initial sepsis screen is negative. Does the patient have a suspected source of infection? No. Patient's initial sepsis screen is negative. Risk Assessment: Do you want to hurt yourself or someone else? Patient reports no desire to harm self or others. Onset of symptoms was May 13, 2025. 10:22 Method Of Arrival: Ambulatory dd2 10:22 Acuity: ADDIS 3 dd2 Triage Assessment: 10:26 General: Appears in no apparent distress. Behavior is calm, cooperative, appropriate dd2 for age. Pain: Complains of pain in left subscapular area, right subscapular area, thoracic area, epigastric area and right upper quadrant, HEAD. Neuro: Reports headache. GI: Reports upper abdominal pain, epigastric pain, nausea, vomiting. 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 - Infectious Disease History:: Denies. - Social history:: Smoking status: Patient denies any tobacco usage or history of. Screenin:10 [facility] ED Fall Risk Assessment (Adult) History of falling in the last 3 months, rg5 including since admission No falls in past 3 months (0 pts) Confusion or Disorientation No (0 pts) Intoxicated or Sedated No (0 pts) Impaired Gait No (0 pts) Mobility Assist Device Used No (0 pt) Altered Elimination No (0 pt) Score/Fall Risk Level 0 - 2 = Low Risk Oriented to surroundings, Maintained a safe environment. 12:24 Abuse screen: Denies threats or abuse. Nutritional screening: No deficits noted. rg5 Tuberculosis screening: No symptoms or risk factors identified. Assessment: 10:58 Reassessment: Patient and/or family updated on plan of care and expected duration. Pain ll1 level reassessed. 11:06 Reassessment: not in lobby or outside. ll1 11:15 Reassessment: was at home, left after ultrasound. Is coming back. ll1 11:18 Reassessment: stated she was in another part of the hospital. ll1 11:25 Reassessment: No changes from previously documented assessment. Patient and/or family ll1 updated on plan of care and expected duration. Pain level reassessed. Patient is alert, oriented x 3, equal unlabored respirations, skin warm/dry/pink. to CT via wheelchair. 12:10 General: Appears in no apparent distress. comfortable, Behavior is calm, cooperative, rg5 appropriate for age. Pain: Denies pain. Neuro: Level of Consciousness is awake, alert, obeys commands, Oriented to person, place, time, situation. Cardiovascular: Denies chest pain. Respiratory: Airway is patent Respiratory effort is even, unlabored. GI: Abdomen is round non-distended, Abd is soft and non tender. Vital Signs: 10:22 BP 126 / 88; Pulse 84; Resp 16; Temp 98.2; Pulse Ox 100% ; Weight 70.76 kg; Pain 8/10; dd2 12:10 BP 121 / 82; Pulse 82; Resp 18; Pulse Ox 100% on R/A; Pain 0/10; rg5 10:22 Pain Scale: Adult dd2 12:10 Pain Scale: Adult rg5 ED Course: 10:15 Patient arrived in ED. mr 10:15 Carley Jefferson FNP-C [facility] kb 10:15 Ciro Isaac MD is Attending Physician. kb 10:26 Triage completed. dd2 10:26 Arm band placed on right wrist. dd2 10:39 CBC with Diff Sent. bc6 10:39 CMP Sent. bc6 10:39 Lipase Sent. bc6 10:39 Initial lab(s) drawn, by me, sent to lab. Inserted saline lock: 20 gauge in left bc6 antecubital area, using aseptic technique. Blood collected. Flushed with 10 mL NS. 10:51 US Abdomen Limited In Process Unspecified. EDMS 11:17 Patient placed in an exam room, on a stretcher. ll1 11:25 Dora Gore, RN is Primary Nurse. ll1 11:30 CT Abd/Pelvis - IV Contrast Only In Process Unspecified. EDMS 12:10 Patient has correct armband on for positive identification. Bed in low position. rg5 12:24 Provided Education on: post er care. rg5 12:24 No provider procedures requiring assistance completed. IV discontinued, bleeding rg5 controlled, No redness/swelling at site. Pressure dressing applied. Administered Medications: 11:25 Drug: Famotidine IVP 20 mg IVP once; dilute with 10 mL 0.9% NaCl; give over 2 minutes ll1 Route: IVP; Site: left antecubital; 12:15 Follow up: Response: No adverse reaction rg5 11:25 Drug: TORadol - Ketorolac IVP 15 mg IVP once Route: IVP; Site: left antecubital; ll1 12:16 Follow up: Response: No adverse reaction; Pain is decreased rg5 11:25 Drug: Ondansetron IVP 4 mg IVP once; over 2 minutes Route: IVP; Site: left antecubital; ll1 12:16 Follow up: Response: No adverse reaction rg5 11:25 Drug: NS 0.9% IV 1000 ml IV at 1 bolus Per protocol; to be given as a bolus over 60 ll1 minutes Route: IV; Rate: 1 bolus; Site: left antecubital; 12:16 Follow up: IV Status: Completed infusion rg5 Medication: 12:10 VIS not applicable for this client. rg5 Outcome: 12:05 Discharge ordered by MD. birch 12:24 Discharged to home ambulatory, rg5 12:24 Condition: stable 12:24 Discharge instructions given to patient, Instructed on discharge instructions, 12:25 Patient left the ED. rg5 Signatures: Dispatcher [employer] EDMS Carley Jefferson, HEMANTH-C DIRECTOR DANCE-CkLesley Miner, Reg Reg mr Dora Gore, RN RN ll1 Elisabeth Britt 6 Oliver Jimenez, RN RN rg5 VLADIMIR MARSHALL RN RN dd2 Corrections: (The following items were deleted from the chart) 11:17 10:58 Patient placed in an exam room, on a stretcher, ll1 ll1
[2025-05-19 12:59] VITALS: TEMP 98.2; O2SAT 100
[2025-05-19 13:02] VITALS: BP 121/82
== END 2025-05-19 12:25 | disposition home or self-care (01) ==
LOC: ER 10:11
DX: R10.11 Right upper quadrant pain (principal); R11.2 Nausea with vomiting, unspecified
CPT/HCPCS: 96361; 85025; 36415; 83690; 80053; 74177; 76705; 96375; 96374; 99284; Q9967; J2405; J7030; J1885